=== PATIENT | male | born 1940 | race Caucasian/White ===

== ENCOUNTER 2016-09-26 09:14 | Emergency (ER) | payer MEDICARE ==
--- NOTE | 2016-09-26 10:08 | RAD ---
INDICATION: Left foot pain, bone spur. TECHNIQUE: 3 views of the left foot were obtained. FINDINGS: The bones are in normal alignment. No fracture is seen. Note is made of prominent vascular calcifications. 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 There is a large spur arising from the inferior aspect of the calcaneus and a small spur arising from the posterior aspect of the calcaneus. IMPRESSION: CALCANEAL SPURS.
--- NOTE | 2016-09-26 10:11 | ED ---
Lower Extremity - HPI Summary HPI Summary: 76 male presents with complaints of a left heel bone spur that has been ongoing for years and has been worsening over the past week. Patient states he usually comes here for injections and the pain goes away for a couple of months. Patient is able to bear weight and walk. States he never had to come into the ED first, to get the injection. Patient sees Dr Davis states he was seen in [place] and had an order to get injections the last couple of times. Bypassed that step this time and just come straight here. Patient denies any other pain, injuries, numbness/tingling and loss of ROM. No other complaints. PMHx significant for diabetes. No pain medications. Has not done anything for the pain. - History of Current Complaint Chief Complaint: EDExtremityLower Stated Complaint: LT FOOT PAIN Time Seen by Provider: 09/26/16 09:43 Hx Obtained From: Patient Mechanism Of Injury: Unknown Onset of Pain: Days - years Onset/Duration: Days - years however worsened over the past couple of days Severity Initially: Mild Severity Currently: Moderate Pain Intensity: 5 Pain Scale Used: 0-10 Numeric Timing: Constant Location: Is Discrete @ - left heel/foot Character Of Pain: Aching Associated Signs And Symptoms: Negative: Swelling, Redness, Bruising, Fever Aggravating Factor(s): Standing, Ambulation, Weight Bearing Alleviating Factor(s): Rest Able to Bear Weight: Yes - Allergies/Home Medications Allergies/Adverse Reactions: Allergies Allergy/AdvReac Type Severity Reaction Status Date / Time Quinolones Allergy Tingling Verified 07/01/16 10:45 PMH/Surg Hx/FS Hx/Imm Hx Endocrine/Hematology History: Reports: Hx Diabetes Cardiovascular History: Denies: Hx Hypertension, Hx Pacemaker/ICD History: Denies: Hx Renal Disease Sensory History: Denies: Hx Hearing Aid Psychiatric History: Denies: Hx Panic Disorder - Cancer History Cancer Type, Location and Year: 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 LT SHOULDER = RCT. 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 KVNG KNEE - ARTHROSCOPIC && CARTILAGE REPAIR - Immunization History Immunizations Up to Date: Yes Infectious Disease History: No Infectious Disease History: Denies: Traveled Outside the [place] in Last 30 Days - Family History Known Family History: Positive: None - Social History Alcohol Use: Rare Substance Use Type: Reports: None Smoking Status (MU): Former Smoker Review of Systems Constitutional: Negative Cardiovascular: Negative Respiratory: Negative Positive: Arthralgia, Myalgia - left heel/foot Skin: Negative Neurological: Negative All Other Systems Reviewed And Are Negative: Yes Physical Exam Triage Information Reviewed: Yes Vital Signs On Initial Exam: Initial Vitals Temp Pulse Resp BP Pulse Ox 97.6 F 54 16 126/63 97 09/26/16 09:17 09/26/16 09:17 09/26/16 09:17 09/26/16 09:17 09/26/16 09:17 Vital Signs Reviewed: Yes Appearance: Positive: Well-Appearing, No Pain Distress, Well-Nourished Skin: Positive: Warm, Skin Color Reflects Adequate Perfusion, Dry. Negative: Numb, Erythema @ Head/Face: Positive: Normal Head/Face Inspection Eyes: Positive: Conjunctiva Clear ENT: Positive: Hearing grossly normal Neck: Positive: Supple, Nontender Respiratory/Lung Sounds: Positive: Clear to Auscultation, Breath Sounds Present. Negative: Rales, Rhonchi, Wheezes Cardiovascular: Positive: Normal, RRR, Pulses are Symmetrical in both Upper and Lower Extremities - 2+ pedal b/l. Negative: Murmur, Rub Bowel Sounds: Positive: Present Musculoskeletal: Positive: Normal, Strength/ROM Intact, Pain @ - left heel on palpation, Other - bone spur of left heel palpated Neurological: Positive: Normal, Sensory/Motor Intact - sensation intact, Alert, Oriented to Person Place, Time, CN Intact II-III, Reflexes Intact, NV Bundle Intact Distally, Normal Gait - with pain and favoring right side due to pain of left heel Diagnostics - Vital Signs Vital Signs Temp Pulse Resp BP Pulse Ox 09/26/16 09:24 97.3 F 54 16 126/63 98 09/26/16 09:17 97.6 F 54 16 126/63 97 - Laboratory Lab Statement: Any lab studies that have been ordered have been reviewed, and results considered in the medical decision making process. 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 There is a large spur arising from the inferior aspect of the calcaneus and a small spur arising from the posterior aspect of the calcaneus. Radiology Interpretation Completed By: Radiologist Lower Extremity Course/Dx - Course Course Of Treatment: patient was properly educated on needing an order by Dr Davis or orthopedist to have radiology inject heel spur for relief. Did not want any medication pain management at this time. Spoke with Dr Lynn to try and see if he was able to get an order in for him today however he was in surgery. Patient instructed to call orthopedic office and speak with them about getting an order for injection with radiology. Also educated to use heel cushions for support and rest. Follow up with ortho. Aware of worsening signs and symptoms. - Diagnoses Differential Diagnosis/HQI/PQRI: Positive: Contusion, Fracture (Closed), Sprain , Strain, Other - heel spur Provider Diagnoses: Heel spur Discharge - Discharge Plan Condition: Stable Disposition: HOME Patient Education Materials: Heel Spur (ED) Additional Instructions: Call orthopedic doctor to get an order for injection. Try obtaining a heel cushion at [facility] as we discussed to place in shoe.
[2016-09-26 11:05] VITALS: BP 119/60
== END 2016-09-26 11:00 | disposition home or self-care (01) ==
LOC: ED 09:14
DX: M77.30 Calcaneal spur, unspecified foot (principal); M79.1 Myalgia; Z87.891 Personal history of nicotine dependence
CPT/HCPCS: 99282

== ENCOUNTER 2016-12-11 07:43 | Day surgery (SDC) | payer MEDICARE ==
[2016-12-11] MEDS ORDERED: ceFAZolin 2 GM PREMIX (*) 50 ML IVPB ONE (08:09)
[2016-12-11] MEDS ORDERED: Dexamethasone IV* 4 MG/ML 1 ML (4 MG) ONE (09:41)
[2016-12-11] MEDS ORDERED: Lidocaine 1% INJ* 10 MG/ML 30 ML SDV ONE (09:41)
[2016-12-11] MEDS ORDERED: Bupivacaine 0.5% SDV PF* 30 ML VIAL ONE (09:42)
[2016-12-11] MEDS ORDERED: Insulin LISPRO* 1 UNITS UNIT SUBCUT ONE ×2 (10:05→10:10)
[2016-12-11] MEDS ORDERED: Midazolam* 1 MG/ML 2 ML VIAL (2 MG) ONE (10:19)
[2016-12-11] MEDS ORDERED: fentaNYL* 50 MCG/ML 2 ML VIAL (100 MCG VIAL) ONE (10:19)
[2016-12-11 11:42] VITALS: BP 113/64
--- NOTE | 2016-12-11 21:31 | OP ---
DATE OF OPERATION: 12/11/16 [facility] DATE OF : 42 SURGEON: Diego Díaz DPM PRODUCTION SUPV: None. ANESTHESIOLOGIST: Handy Jasmine MD ANESTHESIA: MAC with local. 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 OPERATIVE PROCEDURE: Excision of dorsal tarsal bone spurs from the talonavicular joint on the left foot. PATHOLOGY: Degenerative bone. HEMOSTASIS: Pneumatic ankle tourniquet. ESTIMATED BLOOD LOSS: Less than 10 cc. INDICATIONS: The patient with chronic and progressive left dorsal pain causing him to limp and limiting his ability to walk for exercise. He has had previous injections, tried supportive shoes and anti-inflammatories and continues to have limiting pain. He opts for surgery at this time to attempt to decrease his pain and improve his function and his ability to walk. DESCRIPTION OF PROCEDURE: The patient was brought to the operating room, placed on the operating table in supine position. The anesthesia department administered IV sedation and peripheral nerve block was performed about the left foot with a 1:1 mixture of 1% lidocaine plain and 0.5% Marcaine plain. The left foot was then prepped and draped in the usual fashion. The left foot was exsanguinated with an Esmarch bandage and pneumatic ankle tourniquet was inflated to 250 mmHg above a well-padded left ankle. Attention was directed to the dorsal medial aspect of the left foot where a linear incision was made over the talonavicular joint. The incision was deepened through subcutaneous tissue with care being taken to retract neurovascular structures and cauterize the superficial bleeders as needed. At the level of the deep fascia, a linear incision was made through the capsule and periosteum to allow for exposure of the joint. Subperiosteal dissection was carried dorsally and laterally to allow for exposure of the joint. With this being done, there was noted to be a large osteophyte proliferation primarily on the talus and to a lesser degree at the proximal aspect of the dorsal navicula. Using a sagittal saw as well as rongeur, the osteophytes were resected. As far as the dorsal lateral aspect of the joint, as much of that could be accessed was also resected. Hand rasp and power juan j was used to smooth remaining rough edges. The surgical site was flushed with copious amounts of normal sterile saline. Next, the capsule and periosteal tissues were reapproximated and secured with 2-0 Vicryl. Layer closure was performed with 4-0 Vicryl and skin was closed with 5-0 nylon. 4 mg of dexamethasone phosphate was infiltrated into the joint. The surgical site was dressed with Xeroform gauze, Troy, and light Coban wrap. Pneumatic ankle tourniquet was deflated about the left ankle and a prompt hyperemic response was noted in all 5 digits of the patient's left foot. Having appeared to have tolerated the procedures and anesthesia well, the patient was transported via cart from the operating room to Recovery in satisfactory condition. Capillary refill less than 3 seconds to all digits of the left foot. [id number]/CPS #: [id number] MTDD
== END 2016-12-11 12:01 | disposition home or self-care (01) ==
LOC: OREAST 07:43
PROVIDERS: ATTEND Podiatrist Foot Surgery
DX: M77.52 Other enthesopathy of left foot and ankle (principal); M19.072 Primary osteoarthritis, left ankle and foot; I10 Essential (primary) hypertension; E11.9 Type 2 diabetes mellitus without complications; Z79.4 Long term (current) use of insulin; I35.0 Nonrheumatic aortic (valve) stenosis; K21.9 Gastro-esophageal reflux disease without esophagitis; I48.0 Paroxysmal atrial fibrillation
CPT/HCPCS: J0690; J1100; J2001; J2250; J3010

== ENCOUNTER 2017-03-03 12:37 | Emergency (ER) | payer MEDICARE ==
[2017-03-03 13:49] VITALS: BP 129/75
--- NOTE | 2017-03-03 14:15 | UC ---
Head Injury HPI - HPI Summary HPI Summary: head injury x 2 hrs ago s/p fell on ice hit right side of his head + bleeding , no loc , no n/v , no headaches - History Of Current Complaint Chief Complaint: UCHeadInjury Stated Complaint: HEAD INJURY/LAC Time Seen by Provider: 03/03/17 13:43 Hx Obtained From: Patient Onset/Duration: Sudden Onset, Lasting Hours - 2, Still Present Severity Currently: Moderate Severity Initially: Moderate Character: Dull Aggravating Factor(s): Nothing Alleviating Factor(s): Nothing Associated Signs And Symptoms: Negative: LOC (Time In Secs./Mins/Hrs), LOC Duration Unknown, Confusion, Memory Loss, Seizure, Epistaxis, Dental Malocclusion, Neck Pain, Nausea, Vomiting - Allergies/Home Medications Allergies/Adverse Reactions: Allergies Allergy/AdvReac Type Severity Reaction Status Date / Time Ciprofloxacin Allergy Severe blisters Verified 03/03/17 13:39 mouth and throat Quinolones Allergy Tingling Verified 03/03/17 13:39 PMH/Surg Hx/FS Hx/Imm Hx Endocrine History: Diabetes Cardiovascular History: Cardiac Disease, Hypertension Cancer History: Other - skin cancer melanoma Other Cancer History: melanoma - Surgical History Surgical History: Yes Surgery Procedure, Year, and Place: CARDIAC CATH - NO STENTS. LT SHOULDER = RCT. 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 2 hernia repairs. bilat legs- varicose vein stripping. KVNG KNEE - ARTHROSCOPIC && CARTILAGE REPAIR - Family History Known Family History: Positive: Hypertension - Social History Alcohol Use: None Substance Use Type: None Smoking Status (MU): Former Smoker Amount Used/How Often: smoked for 10 years 1/2-1ppd When Did the Patient Quit Smoking/Using Tobacco: 1967 - Immunization History Most Recent Influenza Vaccination: not yet 2017 Review of Systems Constitutional: Negative Eyes: Negative ENT: Negative Respiratory: Negative Cardiovascular: Negative Is Patient Immunocompromised?: No All Other Systems Reviewed And Are Negative: Yes Physical Exam Triage Information Reviewed: Yes Appearance: No Pain Distress, Well-Nourished Vital Signs: Initial Vital Signs Temp 98 F 03/03/17 13:41 Pulse 66 03/03/17 13:41 Resp 20 03/03/17 13:41 BP 129/75 03/03/17 13:41 Pulse Ox 96 03/03/17 13:41 Vital Signs Reviewed: Yes Eyes: Positive: Conjunctiva Clear ENT: Positive: Normal ENT inspection, Hearing grossly normal, Pharynx normal Neck exam: Normal Neck: Positive: Supple, Nontender, No Lymphadenopathy Respiratory: Positive: Chest non-tender, Lungs clear, Normal breath sounds, No respiratory distress, No accessory muscle use Cardiovascular: Positive: RRR, Pulses Normal, Murmur:Sys:Grade _?_/ - 3 Abdomen Description: Positive: Nontender, No Organomegaly, Soft Bowel Sounds: Positive: Present Musculoskeletal: Positive: Strength Intact, ROM Intact, No Edema Neurological: Positive: Alert Skin Exam: Normal Skin: Positive: Other - minor abrasion right side of scalp Head Injury Course/Dx - Differential Dx/Diagnosis Provider Diagnoses: councussion. head injury. abrasio scalp Discharge - Discharge Plan Condition: Stable Disposition: HOME Patient Education Materials: Concussion (ED), Head Injury (ED) Referrals: LETITIA Hernandez [Primary Care Provider] - 2 Days
--- NOTE | 2017-03-03 14:19 | RAD ---
HISTORY: Head injury COMPARISONS: None TECHNIQUE: Multiple contiguous axial CT scans were obtained of the head without intravenous contrast. FINDINGS: HEMORRHAGE/INFARCT: There is no hemorrhage or acute infarct. MASSES/SHIFT: There is no mass or shift. EXTRA-AXIAL SPACES: There are no extra-axial fluid collections. SULCI AND VENTRICLES: There is mild diffuse and proportional enlargement of the sulci and ventricles. CEREBRUM: There is mild hypoattenuation of the periventricular and subcortical white matter. BRAINSTEM: There are no focal parenchymal abnormalities. CEREBELLUM: There are no focal parenchymal abnormalities. VESSELS: There is calcification of the cavernous segments of the internal carotid arteries bilaterally and of the distal vertebral arteries bilaterally. PARANASAL SINUSES: The paranasal sinuses are clear. ORBITS: The orbits are unremarkable. BONES AND SOFT TISSUE: No bone or soft tissue abnormalities are noted. OTHER: None IMPRESSION: NO ACUTE INTRACRANIAL PATHOLOGY. MILD DIFFUSE INVOLUTIONAL CHANGE WITH MILD CHRONIC SMALL VESSEL ISCHEMIC CHANGES.
== END 2017-03-03 14:27 | disposition home or self-care (01) ==
LOC: UCCORT 12:37
DX: S06.0X0A Concussion without loss of consciousness, initial encounter (principal); S00.01XA Abrasion of scalp, initial encounter; W00.0XXA Fall on same level due to ice and snow, initial encounter; Y93.9 Activity, unspecified; Y92.9 Unspecified place or not applicable; E11.9 Type 2 diabetes mellitus without complications; I10 Essential (primary) hypertension; I51.9 Heart disease, unspecified; Z85.820 Personal history of malignant melanoma of skin; Z88.1 Allergy status to other antibiotic agents; Z87.891 Personal history of nicotine dependence
CPT/HCPCS: 70450; 99212; G0463

== ENCOUNTER 2017-10-25 16:31 | Emergency (ER) | payer MEDICARE ==
[2017-10-25 16:58] VITALS: BP 133/63
--- NOTE | 2017-10-25 18:23 | UC ---
UC General HPI - HPI Summary HPI Summary: Patient states that for the past 2-3 days he has had constipation. Denies abdominal pain nausea or vomiting. States that this morning he took some MiraLAX and he had 2 bowel movements while at the urgent care. No other complaints. - History of Current Complaint Chief Complaint: UCGI Stated Complaint: CONSTIPATION Time Seen by Provider: 10/25/17 17:53 Hx Obtained From: Patient Onset/Duration: Sudden Onset, Lasting Days Onset Severity: Severe Current Severity: None Pain Intensity: 8 Associated Signs & Symptoms: Positive: Abdominal Pain - Allergy/Home Medications Allergies/Adverse Reactions: Allergies Allergy/AdvReac Type Severity Reaction Status Date / Time MS Ciprofloxacin Allergy Severe blisters Verified 10/25/17 16:59 [Ciprofloxacin] mouth and throat MS Quinolones [Quinolones] Allergy Tingling Verified 10/25/17 16:59 Home Medications: Home Medications Canagliflozin (NF) [Invokana (NF)] 100 mg PO DAILY 10/25/17 [History Confirmed 10/25/17] Multivit-Minerals/Herbal 121 [Urinozinc Prostate Formula Cap] 1 each PO DAILY [History Confirmed 10/25/17] PMH/Surg Hx/FS Hx/Imm Hx Endocrine History: Diabetes, Dyslipidemia Cardiovascular History: Cardiac Disease, Hypertension - Surgical History Surgical History: Yes Surgery Procedure, Year, and Place: CARDIAC CATH - NO STENTS. LT SHOULDER = RCT. 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 2 hernia repairs. bilat legs- varicose vein stripping. KVNG KNEE - ARTHROSCOPIC && CARTILAGE REPAIR - Family History Known Family History: Positive: Hypertension - Social History Alcohol Use: None Substance Use Type: None Smoking Status (MU): Former Smoker Amount Used/How Often: smoked for 10 years 1/2-1ppd When Did the Patient Quit Smoking/Using Tobacco: 1967 - Immunization History Most Recent Influenza Vaccination: not yet 2017 Review of Systems Gastrointestinal: Abdominal Pain, Other All Other Systems Reviewed And Are Negative: Yes Physical Exam Triage Information Reviewed: Yes Appearance: Well-Appearing, No Pain Distress, Well-Nourished Vital Signs: Initial Vital Signs Temp 97.1 F 10/25/17 16:51 Pulse 88 10/25/17 16:51 Resp 17 10/25/17 16:51 BP 133/63 10/25/17 16:51 Pulse Ox 95 10/25/17 16:51 Vital Signs Reviewed: Yes Eyes: Positive: Conjunctiva Clear ENT: Positive: Pharynx normal Neck: Positive: Supple, Nontender, No Lymphadenopathy Respiratory: Positive: Chest non-tender, Lungs clear, Normal breath sounds, No respiratory distress Cardiovascular: Positive: RRR, Pulses Normal, Brisk Capillary Refill, Murmur:Sys :Grade _?_/ - 5/6 Abdomen Description: Positive: Nontender, No Organomegaly, Soft Bowel Sounds: Positive: Present Course/Dx - Course Course Of Treatment: Patient's constipation found resolution at when he had several BMs. Denies diarrhea. Denies abdominal pain. F/u PCP . Miralax as needed. - Differential Dx - Multi-Symptom Provider Diagnoses: constipation Discharge - Sign-Out/Discharge Documenting (check all that apply): Patient Departure All imaging exams completed and their final reports reviewed: No Studies - Discharge Plan Condition: Stable Disposition: HOME Patient Education Materials: Constipation (ED), Polyethylene Glycol 3350 (By mouth) Referrals: Gonsalo Child MD [Primary Care Provider] - - Billing Disposition and Condition Condition: STABLE Disposition: Home
== END 2017-10-25 18:22 | disposition home or self-care (01) ==
LOC: UCCORT 16:31
DX: K59.00 Constipation, unspecified (principal); Z87.891 Personal history of nicotine dependence; Z88.3 Allergy status to other anti-infective agents
CPT/HCPCS: 99212; G0463

== ENCOUNTER 2017-11-10 10:49 | Emergency (ER) | payer MEDICARE ==
--- OUTSIDE RECORDS SUMMARY | 2017-11-10 10:59 | XMS REPORT ---
:1940 External Reference #:[id number] Author Organization [facility] Address [address] [place] [address] Phone [phone] Care Team Providers Name Role Phone HCP given Primary Care Physician Unavailable Payers Type Date Identification Numbers Payment Provider Subscriber Commercial Expires: Policy Number: [id number] [facility] Nilam Awan 2015 00 MDCR Gifty. Group Number: [id number] [address] [address] PayID: [id number] [place] [address] Commercial Effective: Policy Number: Today Option/Amsandra Nilam Awan 2015 [id number] Prog PayID: [id number] [address] [address] [place] [address] Advance Directives Description No Advance Directives Problems Date Description Provider Status Onset: 07/22/2010 Type II diabetes mellitus uncontrolled Gonsalo Child M.D. Active Onset: 07/22/2010 Benign essential hypertension Gonsalo Child M.D. Active Onset: 07/22/2010 Pure hypercholesterolemia Gonsalo Child M.D. Active Onset: 06/04/2011 Rheumatic mitral stenosis Gonsalo Child M.D. Active Onset: 05/06/2013 Type 2 diabetes mellitus Gonsalo Child M.D. Active Onset: 01/23/2014 Aortic valve disorder Gonsalo Child M.D. Active Onset: 01/23/2014 Mitral valve disorder Gonsalo Child M.D. Active Onset: 12/20/2014 Essential hypertension Gonsalo Child M.D. Active Onset: 04/06/2017 History of polyp of colon Gonsalo Child M.D. 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 Cigarette Use 01/23/2014 Former Cigarette Smoker smoked for 10yrs, quit 1967 ETOH Use Denies alcohol use Exercise Type/Frequency Exercises walks 4 miles 5x/wk Age 1st [place] 17 Years Old Allergies, Adverse Reactions, Alerts Date Description Reaction Status Severity Comments 08/20/2009 Ciprofloxacin active tongue sores, ulcers Medications Medication Date Status Form Strength Qnty SIG Indications Ordering Provider Ashlie 10/28/ Active Solution 100Unit/ML inject 50 E11.9 Silcoff, Kwikpen 2018 Pen-Inject units once a Gonsalo, day, at same M.D. time every day, for blood sugar control Sildenafil 08/14/ Active Tablets 20mg 50tab 3-5 tablets N52.9 Silcoff, Citrate 2018 s up to Gonsalo, once/day as M.D. needed for erectile dysfunction Vitamin B12 07/14/ Active Tablets 2500mcg 2 by mouth D51.9 Unknown 2018 every day Chromium 07/14/ Active Tablets 1000mcg 1 tab po Unknown 2018 daily Esomeprazole 07/06/ Active Capsules 40mg 30cap take one R13.10 Silcoff, Magnesium 2018 DR s capsule by brianda Brush every M.D. morning, at least 30 minutes before eating Metformin HCL 07/05/ Active Tablets 1000mg 180ta take one E11.65 Silcoperla 2018 bs tablet by brianda Brush twice M.D. a day E11.9 Pen Hector 06/12/2017 Active Misc 31G 100units use as directed E11.9 Mateusz 07/15" X 8 for insulin laura Brush administration M.D. Shingrix 05/08/2017 Active Suspension 50mc 2units administer 2 Z23 Silcoff, Rec g doses as Gonsalo, directed, per M.D. cdc guidelines Diphenhydramin 04/05/2017 Active Tablets 50mg prn Unknown e HCL (Sleep) Propafenone 04/05/2017 Active Tablets 150m 1 tablet I49.9 Davidenko HCL g 3x/day; for , oskar Ch MD suppression Amlodipine 04/05/2017 Active Tablets 5mg 90tabs take 1 tablet I10 Silcoff, Besylate daily in the Prole, evening for M.D. high blood pressure Cinnamon 05/05/2013 Active Capsules 1000 OTC Unknown mg Magnesium 05/05/2013 Active Tablets 250m OTC 1 po qd/occ. Unknown g Aspirin Ec 07/22/[address] 81mg 1 pill daily 250.02 Silcoff, for heart Gonsalo, disease M.D. prevention Metoprolol 12/26/2009 Active Tablets 25mg 90tabs take one tablet I10 Silcoff, Tartrate by mouth every Prole, day for high M.D. blood pressure Simvastatin Active Tablets 20mg 90tabs take one tablet Silcoff, by mouth every Prole, day to lower M.D. cholesterol [facility]x Solution 100U 15ml inject 40 units E11.9 Silcoff , Kwikpen - Pen-Inject nit/ once a day, at [place], 10/28/2017 ML same time every M.D. day, for blood sugar control [facility] 09/29/2017 Hx Solution 100U inject 30 units E11.9 Silcoff, Kwikpen - Pen-Inject nit/ once a day, at [place], 10/16/2017 ML same time every M.D. day, for blood sugar control [facility] Hx Solution 100U 15ml inject 20 units E11.9 Silcoff , Kwikpen - Pen-Inject nit/ once a day, at [place], 09/29/2017 ML same time every M.D. day, for blood sugar control Basaglar 07/05/2017 Hx Solution 100U 15ml inject 10 units E11.9 Silcoff , Kwikpen - Pen-Inject nit/ once a day, at Prole, 09/16/2017 ML same time every M.D. day, for blood sugar control Basaglar 06/12/2017 Hx Solution 100U 15ml inject 20 units E11.9 Silcoff , Kwikpen - Pen-Inject nit/ once a day, at [place]le, 07/05/2017 ML same time every M.D. day, for blood sugar control Shilatjit 04/05/2017 Hx 50mg (supplement) Unknown - 07/14/2017 Tribulus 04/05/2017 Hx 50mg 1 daily Unknown (Fruit) - (supplement) 07/14/2017 Invokana 04/05/2017 Hx Tablets 300m 1 tab by mouth E11.9 Unknown - g every morning 06/12/2017 for diabetes Vitamin B12 04/05/2017 Hx Tablets ER 1000 2 tablets by D51.9 Unknown - mcg mouth every 07/14/2017 day; for B12 deficiency Voltaren 12/20/2014 Hx Gel 1% 300gm apply 1 gram M25.57 Silcoff, - 4x/day to 2 Gonsalo, 07/05/2017 painful area on M.D. the top of left foot M19.072 Pioglitazone HCL 12/20/2014 - Hx Tablets 45mg 90tabs Take One E11.65 Silcoff, 09/16/2017 Tablet By Sherly Brush Mouth Every Day For Blood Sugar Control E11.9 Meloxicam 07/11/2014 - 12/19/2014 Hx Tablets 15mg 1 by mouth every 719.47 Unknown day for foot pain 715.17 Chromium 05/05/2013 - Hx Tablets 200mcg OTC occ. Unknown Picolinate 07/14/2017 Hydrocodone/Alfredo 03/18/2011 - Hx Tablets 5-325mg 30tabs 1 by mouth 724.5 Silcoff, taminophen 04/18/2011 every 4 hours Gonsalo, as needed for M.D. pain Actos 11/13/2010 - Hx Tablets 30mg 90tabs Take One E11.6 Silcoff, 12/20/2014 Tablet By 5 Gonsalo, Mouth Every M.D. Day For Diabetes E11.9 Actos 07/22/2010 - Hx Tablets 15mg 90tabs take one 250.02 Silcoff, 11/13/2010 tablet by Sherly Brush mouth every day for diabetes Metformin HCL 01/22/2010 - Hx Tablets 500mg 360tabs Take Two E11.65 Silcoff, 07/05/2017 Tablets By Sherly Brush Mouth Twice A Day For Diabetes E11.9 Metformin HCL 10/22/2009 - Hx Tablets 500mg 360tabs 1 bid to 250.02 Silcoff, 01/22/2010 start; after 1 Gonsalo week increase M.D. to 2 in am and 1 in pm if morning sugar is >120; after 1 more week inc to 2 bid Simvastatin 10/22/2009 - Hx Tablets 40mg 90tabs take one E78.0 Silcoff, 04/05/2017 tablet by brianda Brush every M.D. day for high cholesterol Viagra 08/20/2009 - Hx Tablets 100mg 30tabs 1/2-1 po qd 607.84 Silcoperla, 08/14/2017 prn for patrizia Brush M.D. dysfunction; max 1 dose/day Metoprolol 08/19/2009 - Hx 25mg 1 po qd 401.1 Yalamanchil Tartrate 12/26/2009 Iglesia grant MD Propafenone 08/19/2009 - Hx 150mg 1 po qd 427.9 Davidenko, HCL 04/05/2017 MD Dima Simvastatin 08/19/2009 - Hx 20mg 1 po qam for 272.0 Yalamanchil 10/22/2009 high Iglesia grant cholesterol Viagra 08/19/2009 - Hx Tablets 50mg 1 po qd prn as 607.84 Unknown 08/20/2009 directed Glimepiride 08/19/2009 - Hx Tablets 4mg 180tabs take one E11.9 Silcoff, 06/12/2017 tablet by brianda Brush twice a M.D. day for diabetes Tamsulosin HCL - Hx Capsules 0.4mg 30caps 1 tablet daily Unknown 07/14/2017 in the morning and again after supper Immunizations CPT Code Status Date Vaccine Lot # [id number] Given 07/18/2017 Shingrix Zoster (Shingles) Vaccine (HZV) Recomb,Subnit,Adjuvanted 14397 Given 05/11/2017 Shingrix Zoster (Shingles) Vaccine (HZV) Recomb,Subnit,Adjuvanted 34103 Given 04/06/2017 Influenza Virus Vaccine, Quadrivalent, Split, [id number] Preservative Free 24683 Given 01/04/2015 Influenza Vaccine Split Virus Preservative Free Im [id number] Use 38565 Given 12/20/2014 Prevnar 13 [id number] 02005 Given 01/23/2014 Influenza Vaccine Split Virus Preservative Free Im [id number] Use 36477 Given 02/22/2013 Pneumococcal Immunization 48259 Given 02/22/2013 Flu, Split Virus 3Yrs 84884 Given 11/05/2011 Flu, Split Virus 3Yrs [id number] 65661 Given 11/13/2010 Flu, Split Virus 3Yrs [id number] 62568 Given 01/22/2010 Pneumococcal Immunization [id number] 25220 Given 01/22/2010 Adacel or Boostrix, TDaP [id number] 18763 Given 01/22/2010 Flu, Split Virus 3Yrs [id number] 70325 Given 04/10/2004 Pneumococcal Immunization 18384 Refused 04/24/2010 Zostavax Vital Signs Date Vital Result Comment 11/04/2017 BP Systolic 120 mmHg BP Diastolic 70 mmHg Weight 179.00 lb with sneakers 10/16/2017 BP Systolic 114 mmHg BP Diastolic 66 mmHg Heart Rate 88 /min reg Respiratory Rate 32 /min not laboured; shallow Weight 188.00 lb w/sneakers 09/16/2017 BP Systolic 110 mmHg BP Diastolic 64 mmHg Weight 187.00 lb w/shoes 07/15/2017 BP Systolic 110 mmHg BP Diastolic 70 mmHg Height 71 inches 5'11" with shoes Weight 200.00 lb with shoes BMI (Body Mass Index) 27.9 kg/m2 07/06/2017 BP Systolic 128 mmHg BP Diastolic 68 mmHg Weight 200.00 lb 06/12/2017 BP Systolic 100 mmHg BP Diastolic 60 mmHg Weight 197.00 lb w/shoes 05/08/2017 BP Systolic 112 mmHg BP Diastolic 64 mmHg Weight 197.00 lb 04/06/2017 BP Systolic 100 mmHg BP Diastolic 60 mmHg Weight 195.00 lb 03/27/2015 BP Systolic 118 mmHg BP Diastolic 78 mmHg Height 71.5 inches 5'11.50" Weight 206.50 lb BMI (Body Mass Index) 28.4 kg/m2 12/20/2014 BP Systolic 120 mmHg BP Diastolic 70 mmHg Weight 204.00 lb 07/18/2014 BP Systolic 130 mmHg BP Diastolic 78 mmHg Height 70.5 inches 5'10.50" Weight 202.00 lb BMI (Body Mass Index) 28.6 kg/m2 06/21/2014 BP Systolic 132 mmHg BP Diastolic 78 mmHg Weight 202.00 lb w/shoes 01/23/2014 BP Systolic 122 mmHg BP Diastolic 80 mmHg Height 71 inches 5'11" Weight 205.00 lb BMI (Body Mass Index) 28.6 kg/m2 11/24/2013 BP Systolic 100 mmHg BP Diastolic 64 mmHg Weight 202.00 lb 05/06/2013 BP Systolic 120 mmHg BP Diastolic 72 mmHg Heart Rate 74 /min reg Respiratory Rate 16 /min not laboured Height 70.75 inches 5'10.75" Weight 200.00 lb BMI (Body Mass Index) 28.1 kg/m2 11/05/2012 BP Systolic 140 mmHg BP Diastolic 70 mmHg Heart Rate 56 /min reg Height 70.75 inches 5'10.75" Weight 199.00 lb BMI (Body Mass Index) 27.9 kg/m2 05/04/2012 BP Systolic 118 mmHg BP Diastolic 76 mmHg Heart Rate 76 /min reg Height 71 inches 5'11" Weight 198.00 lb BMI (Body Mass Index) 27.6 kg/m2 03/16/2012 Body Temperature 98.2 F 03/12/2012 BP Systolic 118 mmHg BP Diastolic 66 mmHg Weight 203.00 lb 11/05/2011 BP Systolic 108 mmHg BP Diastolic 76 mmHg BP Systolic Recheck 120 mmHg R arm sitting BP Diastolic Recheck 70 mmHg R arm sitting Heart Rate 56 /min reg Height 71 inches 5'11" Weight 197.00 lb BMI (Body Mass Index) 27.5 kg/m2 Last Menstrual Period 0 06/04/2011 BP Systolic 106 mmHg BP Diastolic 70 mmHg BP Systolic Recheck 114 mmHg R arm sitting BP Diastolic Recheck 66 mmHg R arm sitting Weight 199.00 lb 03/19/2011 BP Systolic 130 mmHg BP Diastolic 80 mmHg 03/04/2011 BP Systolic 130 mmHg BP Diastolic 80 mmHg Height 71.50 inches 5'11.50" Weight 203.00 lb BMI (Body Mass Index) 27.9 kg/m2 11/13/2010 BP Systolic 108 mmHg BP Diastolic 66 mmHg Heart Rate 59 /min reg Weight 195.00 lb 07/22/2010 BP Systolic 128 mmHg BP Diastolic 78 mmHg Weight 195.00 lb 04/24/2010 BP Systolic 114 mmHg BP Diastolic 70 mmHg Height 72 inches 6'0" Weight 197.00 lb BMI (Body Mass Index) 26.7 kg/m2 01/22/2010 BP Systolic 110 mmHg BP Diastolic 72 mmHg Weight 195.00 lb 10/22/2009 BP Systolic 118 mmHg BP Diastolic 76 mmHg Weight 193.00 lb Last Menstrual Period 0 08/20/2009 BP Systolic 112 mmHg BP Diastolic 70 mmHg Heart Rate 56 /min reg Respiratory Rate 12 /min not laboured Height 71.75 inches 5'11.75" Weight 191.00 lb BMI (Body Mass Index) 26.1 kg/m2 Results Test Date Test Result H/L Range Note Laboratory test finding 09/16/2017 Hemoglobin A1c 14.4 Glucose [facility] Laboratory test finding 07/16/2017 Hemoglobin A1c 8.5 Urine Micro Inhouse 06/12/2017 Ua WBC - 1 Ua RBC - 1 Ua Casts - 1 Ua Epi - 1 Ua Other - 1 Ua Glucose +, 2000 1 Ua Bilirubin - 1 Ua Ketones - 1 Ua Specific [place] 1.015 1 Ua Blood - 1 Ua PH 5.0 1 Ua Protein - 1 Ua Urobilinogen - 1 Ua Nitrite - 1 Ua Leukocytes - 1 Laboratory test finding 06/12/2017 Hemoglobin A1c 8.4 Laboratory test finding 04/06/2017 Hemoglobin A1c 8.9 Laboratory test finding 03/27/2015 Hemoglobin A1c 7.1 Urine Micro Inhouse 12/20/2014 Ua WBC 1-2 Ua RBC TNTC Ua Casts 1-2 Ua Epi 1 Ua Glucose 1/2 Ua Bilirubin SM Ua Specific [place] 1.015 Ua PH 5.0 Ua Urobilinogen 0.2 Laboratory test finding 12/20/2014 Hemoglobin A1c 8.0 Urine Microalbumin Random 06/27/2014 Ur Microalbumin (mg/L) 8.0 mg/L Urine Creatinine 125.61 mg/dL Urine Microalbumin/Creatinine 6.3 mg/g Less Than 31 Lipid Profile (Trig/Chol/HDL) 06/27/2014 Triglycerides 145 mg/dL 2 Cholesterol 169 mg/dL 3 HDL Cholesterol 48.6 mg/dL 4 LDL Cholesterol 91 mg/dL 5 Laboratory test finding 06/21/2014 Hemoglobin A1c 7.1 Comprehensive Metabolic Panel 01/09/2014 Glucose 113 mg/dL High 74-106 BUN 17 mg/dL 7-18 Creatinine 1.1 mg/dL 0.6-1.3 Glom Filtration Rate, Estimate >60 mL/min >60 If >60 mL/min >60 6 BUN/Creat 15.4 ratio Sodium 140 mmol/L 136-145 Potassium 3.8 mmol/L 3.5-5.1 Chloride 105 mmol/L 98-107 Carbon Dioxide 26 mmol/L 21-32 Anion Gap 13 mEq/L 8-16 Calcium 9.2 mg/dL 8.5-10.1 Total Protein 6.9 g/dL 6.4-8.2 Albumin 3.8 g/dL 3.4-5.0 Globulin 3.1 g/dL 1.9-4.3 Alb/Glob 1.2 ratio Bilirubin,Total 0.6 mg/dL 0.2-1.0 Sgot/Ast 11 U/L Low 15-37 7 SGPT/Alt 23 U/L 12-78 Alkaline Phosphatase 54 U/L 45-117 CBC W/Automated Diff 01/09/2014 White Blood Count 7.5 K/uL 3.4-10.5 Red Blood Count 4.41 M/uL 4.20-5.80 Hemoglobin 13.8 gm/dL 12.8-17.0 Hematocrit 40.9 % 38.0-48.0 Mean Cell Volume 92.7 fl 80.0-96.0 Mean Corpuscular HGB 31.3 pg 27.0-33.0 Mean Corpuscular HGB Conc 33.7 g/dL 31.7-36.0 Platelet Count 218 K/uL 150-400 Red Cell Distri Width SD 43.2 fl 36-51 Red Cell Distri Width %CV 13.0 % 11.6-15.8 Mean Platelet Volume 10.0 fL 6.6-10.6 Neut% 49.2 % 33.0-73.0 Lymph % 34.7 % 17.0-56.0 [place] % 12.2 % High 0.0-10.0 Eo% 3.6 % 0.0-5.0 Bas% 0.3 % 0.1-1.0 Neut# 3.70 K/uL 1.8-7.0 Lymph # 2.61 K/uL 1.2-4.0 [place] # 0.92 K/uL High 0.0-0.6 Eos # 0.27 K/uL 0.0-0.5 Baso # 0.02 K/uL Low 0.1-0.2 Laboratory test finding 01/09/2014 CK 105 U/L 39-308 Troponin-I < 0.02 ng/mL 8 Protime 01/09/2014 Protime 13.0 seconds 12.0-14.4 Inr 1.0 0.9-1.1 9 Laboratory test finding 11/24/2013 Hemoglobin A1c 6.9% Urine Micro Inhouse 11/24/2013 Ua WBC - Ua RBC - Ua Casts - Ua Epi - Ua Other - Ua Glucose - Ua Bilirubin - Ua Ketones - Ua Specific [place] 1.030 Ua Blood - Ua PH 5.0 Ua Protein - Ua Urobilinogen - Ua Nitrite - Ua Leukocytes - Laboratory test 06/03/2013 Surgical Pathology RUN DATE: finding <SEE NOTE> Laboratory test 05/11/2013 Microalbumin,Random 7.5 mg/L 0.0-18.5 finding Urine LDL Cholesterol 05/11/2013 Cholesterol 186 mg/dL 120-200 Profile Triglycerides 193 mg/dL 16-231 HDL Cholesterol 51 mg/dL 29-83 LDL-Cholesterol 96 mg/dL 62-185 Laboratory test finding 05/11/2013 SGPT/Alt 30 U/L 30-65 Basic Metabolic Panel 05/11/2013 Glucose 129 mg/dL High 76-115 BUN 14 mg/dL 5-23 Creatinine 0.8 mg/dL 0.5-1.4 Glom Filtration Rate, Estimate >60 mL/min >60 If >60 mL/min >60 11 BUN/Creat 17.5 ratio Sodium 138 mmol/L 136-145 Potassium 4.1 mmol/L 3.5-5.1 Chloride 102 mmol/L 98-107 Carbon Dioxide 29 mEq/L 18-29 Anion Gap 11 mEq/L 8-16 Calcium 9.2 mg/dL 8.5-10.1 Laboratory test finding 05/06/2013 Hemoglobin A1c 6.7 Laboratory test finding 02/21/2013 Stool Occult Blood-Single NEGATIVE Negative 12 Spec Urine Micro Inhouse 11/05/2012 Ua WBC 0-2 Ua RBC 0-2 Ua Casts - Ua Epi - Ua Other - Ua Glucose - Ua Bilirubin - Ua Ketones - Ua Specific [place] 1.025 Ua Blood - Ua PH 5.0 Ua Protein - Ua Urobilinogen - Ua Nitrite - Ua Leukocytes - Laboratory test finding 11/05/2012 Hemoglobin A1c 6.7 Urine Microalbumin Random 05/13/2012 Ur Microalbumin (Mg/L) 3.0 mg/L 13 Urine Creatinine 97.2 mg/dL Urine Microalbumin/Creatinine 3.1 ug/mg Less Than 31 Basic Metabolic Panel 05/13/2012 Sodium 136 mmol/L 133-145 Potassium 4.2 mmol/L 3.5-5.0 Chloride 102 mmol/L 101-111 Co2 Carbon Dioxide 28.0 mmol/L 22-32 Anion Gap 6.0 mmol/L 2-11 Glucose 147 mg/dL High 70-100 Blood Urea Nitrogen 14 mg/dL 6-24 Creatinine 0.90 mg/dL 0.50-1.40 BUN/Creatinine Ratio 15.6 8-20 Calcium 9.2 mg/dL 8.1-9.9 Egfr Non- 83.2 >60 Egfr 107.0 >60 14 Laboratory test finding 05/13/2012 Alt 17 U/L 14-54 Lipid Profile (Trig/Chol/HDL) 05/13/2012 Triglycerides 90 mg/dL 40-200 Cholesterol 141 mg/dL Less than 200 HDL Cholesterol 42 mg/dL 40-60 15 Cholesterol/HDL Ratio 3.4 Average 1-4.44 LDL Cholesterol 81.0 mg/dL Less Than 100 16 Laboratory test finding 05/04/2012 Hemoglobin A1c 6.6 Laboratory test finding 03/12/2012 Surgical Pathology RUN DATE: 03/16/ <SEE 17 NOTE> Laboratory test finding 11/05/2011 Hemoglobin A1c 6.8% Laboratory test finding 06/04/2011 Hemoglobin A1c 6.8 Urine Microalbumin Random 05/27/2011 Microalbumin (MG/L) 7.0 mg/L Urine Creatinine 118.2 mg/dL Umesh Alb/Creatinine Ratio 5.9 UG/MG Less Than 30 18 BMP - Basic Metabolic Panel 05/27/2011 Sodium 135 mmol/L 135-145 Potassium 4.0 mmol/L 3.5-5.0 Chloride 102 mmol/L 101-111 Co2 (Carbon Dioxide) 28.0 mmol/L 22-32 Anion Gap 5.0 mmol/L 2-11 19 Glucose 153 mg/dL High 70-100 BUN 15 mg/dL 6-24 Creatinine 0.8 mg/dL 0.50-1.40 One Over Creatinine 1.25 BUN/Creatinine Ratio 18.8 8-20 Calcium 8.7 mg/dL 8.1-9.9 eGFR Non- 95.6 > 60 eGFR 122.9 > 60 20 Lipid Panel 05/27/2011 Triglyceride 106 mg/dL 40-200 Cholesterol 162 mg/dL Less Than 200 21 High Density Lipoprotein 47 mg/dL 40-60 22 Cholesterol/HDL Ratio 3.45 AVERAGE 1-4.97 Low Density Lipoprotein 94 mg/dL Less Than 100 23 Laboratory test finding 05/27/2011 Alt (SGPT) 19 U/L 17-63 Laboratory test finding 03/04/2011 Hemoglobin A1c 7.3 Laboratory test finding 11/13/2010 Hemoglobin A1c 7.4 Laboratory test finding 07/22/2010 Hemoglobin A1c 7.6 Laboratory test finding 04/24/2010 Hemoglobin A1c 8.2 Laboratory test finding 01/17/2010 Hemoglobin A1c 8.4 % High Less Than 6.0 24 Alt (SGPT) 26 U/L 17-63 Lipid Profile (Trig/Chol/HDL) 01/17/2010 Triglyceride 91 mg/dL 40-200 Cholesterol 169 mg/dL Less Than 200 25 High Density Lipoprotein 49 mg/dL 40-60 26 Cholesterol/HDL Ratio 3.45 AVERAGE 1-4.97 Low Density Lipoprotein 102 mg/dL High Less Than 100 27 Laboratory test 10/15/2009 Hemoglobin A1c 9.6 % High Less Than 6.0 28 finding Urine Microalbumin 10/15/2009 Microalbumin (MG/L) 10.0 mg/L Random Urine Creatinine 118.96 mg/dL Umesh Alb/Creatinine Ratio 8.4 UG/MG Less Than 30 29 CBC With Manual Diff 10/15/2009 White Blood Count 7.3 CUMM 4.8-10.8 Red Cell Count 4.89 CUMM 4.6-6.2 Hemoglobin 15.5 g/dL 14.0-18.0 Hematocrit 44 % 42-52 Mean Corpuscular Volume 90 um3 80-94 Mean Corpuscular Hemoglob 32 pg High 27-31 Mean Corpuscular HGB Cone 35 g/dL 32-36 Redcell Distribution WDTH 13 % 10.5-15 Platelet Count 228 CUMM 150-450 Mean Platelet Volume 8.0 um3 7.4-10.4 Polysegmented Neutrophil 66 % 38-83 Band Neutrophil 1 % 0-8 Lymphocyte 25 % 25-47 Monocyte 6 % 0-13 Eosinophil 2 % 0-6 Absolute Neutrophil Count 4.8 Laboratory test finding 10/15/2009 Alt (SGPT) 25 U/L 17-63 Lipid Profile (Trig/Chol/HDL) 10/15/2009 Triglyceride 152 mg/dL 40-200 Cholesterol 175 mg/dL Less Than 200 30 High Density Lipoprotein 37 mg/dL Low 40-60 31 Cholesterol/HDL Ratio 4.73 AVERAGE 1-4.97 Low Density Lipoprotein 108 mg/dL High Less Than 100 32 Basic Metabolic Panel 10/15/2009 Sodium 136 mmol/L 135-145 Potassium 4.0 mmol/L 3.5-5.0 Chloride 103 mmol/L 101-111 Co2 (Carbon Dioxide) 26.0 mmol/L 22-32 Anion Gap 7.0 mmol/L 2-11 33 Glucose 201 mg/dL High 70-100 34 BUN 11 mg/dL 6-24 Creatinine 0.90 mg/dL 0.50-1.40 One Over Creatinine 1.10 BUN/Creatinine Ratio 12.2 8-20 Calcium 9.0 mg/dL 8.1-9.9 35 eGFR Non- 89.2 > 60 eGFR 107.9 > 60 36 Urine Micro Inhouse 08/20/2009 Ua WBC - Ua RBC - Ua Casts - Ua Epi - Ua Other - Ua Glucose 1+ Ua Bilirubin - Ua Ketones - Ua Specific [place] 1.030 Ua Blood - Ua PH 5.0 Ua Protein tr Ua Urobilinogen - Ua Nitrite - Ua Leukocytes - 1 void, clear, yellow 2 Desirable <150 Borderline high 150-199 High 200-499 Very High >500 3 Desirable <200 Borderline high 200-239 High >239 4 Low <40 Desirable: 40-60 High: >60 5 Desirable: <100 mg/dL Near Optimal: 100-129 mg/dL Borderline High: 130-159 mg/dL High: 160-189 mg/dL Very High: >189 mg/dL 6 Note: Persistent reduction for 3 months or more in an eGFR <60 mL/min/1.73 m2 defines CKD. Patients with eGFR values >/=60 mL/min/1.73 m2 may also have CKD if evidence of persistent proteinuria is present. The original MDRD equation for estimated GFR is not valid for patients less than 18 years of age. Additional information may be found at www.kdoqi.org. 7 Values below the stated reference ranges of AST and ALT can be seen in normal populations. Clinical correlation is suggested. 8 0.0 - 0.045 ng/mL: Normal 0.046 - 0.5 ng/mL: Suggestive 0.6 - 1.5 ng/mL: Consistent 9 THERAPEUTIC INR RANGE: 2.0 - 3.0 DVT, Pulmonary embolus, prophylaxis against venous thrombosis or systemic embolization in high risk patients. 2.5 - 3.5 Mechanical heart valves 10 RUN DATE: 06/06/13 [facility] LAB LIVE PAGE 1 RUN TIME: [address] [place], [place] [address] Specimen Inquiry Name: NILAM AWAN : [address]: Alber Argueta MD Acct: [id number] Unit: [id number] AGE: 73 Location: [facility] Re06/03/13 SEX: M Status: REG REF SPEC: [id number] ESPERANZA: 06/03/13-1012 [facility] DR: Alber Argueta MD REQ: [id number] RECD: 06/03/132700 STATUS: SOUT _ ORDERED: LEVEL IV/4 FINAL DIAGNOSIS 1. Skin, left upper back, punch biopsy: A. Basal cell carcinoma, superficial pattern. B. Lesion approaches to within 0.1 mm. of the unoriented lateral margin. 2. Skin, right upper medial back, punch biopsy: Hemangioma. 3. Skin, right upper back lateral, punch biopsy: A. Basal cell carcinoma, superficial pattern. B. Lesion extends to within 0.1 mm. of the unoriented lateral margin. 4. Skin, right mid back, punch biopsy: A. Actinic keratosis with excoriation. B. No evidence of melanocytic neoplasia identified. CLINICAL HISTORY Personal history of melanoma. 1) 3 mm. punch, full thickness 2 cm. ovoid macular red lesion; 2) 2 cm. ovoid macular red lesion, 3 mm. punch full thickness; 3) 1 cm. nodule, 3 mm. punch, full thickness; 4) 1 cm. macular red lesion, 3 mm. punch, full thickness PRE-OPERATIVE DIAGNOSIS 238.2 CONTINUED ON NEXT PAGE * ML=Testing performed at Main Lab DEPARTMENT OF PATHOLOGY, [facility] [place], [place] [address] Guido Moreno M.D. Director [facility] Permit #[id number] RUN DATE: 06/06/13 [facility] LAB LIVE PAGE 2 RUN TIME: 1431 [facility] [employer] [place], [place] [address] Specimen Inquiry Patient: LAWANDA AWANSola Etienne SR [id number] (Continued) GROSS DESCRIPTION (Continued) GROSS DESCRIPTION 1. The specimen is received in formalin labeled Nilam Awan, Left Upper Back, and consists of a 0.2 x 0.2 x 1.0 cm. punch biopsy of skin. Submitted entirely, one cassette. 2. The specimen is received in formalin labeled Nilam Awan Right Upper Medial Back, and consists of a 0.2 x 0.2 x 0.7 cm. punch biopsy of skin. Submitted entirely, one cassette. 3. The specimen is received in formalin labeled Nilam Awan, Right Upper Back Lateral, and consists of a 0.2 x 0.2 x 0.4 cm. punch biopsy of skin. Submitted entirely, one cassette. 4. The specimen is received in formalin labeled Nilam Awan, Right Mid Back , and consists of a 0.2 x 0.2 x 0.6 cm. punch biopsy of skin. Submitted entirely, one cassette. 1. Signed (signature on file) Guido Moreno MD [id number] END OF REPORT * ML=Testing performed at Main Lab DEPARTMENT OF PATHOLOGY, [address] [place] [address] Guido Moreno M.D. Director [facility] Permit #[id number] Note: Persistent reduction for 3 months or more in an eGFR <60 mL/min/1.73 m2 defines CKD. Patients with eGFR values >/=60 mL/min/1.73 m2 may also have CKD if evidence of persistent proteinuria is present. The original MDRD equation for estimated GFR is not valid for patients less than 18 years of age. Additional information may be found at www.kdoqi.org. 12 Specimen Comments: ONLY 1 TEST NEEDS TO BE DONE 13 Microalbuminuria in a random sample is defined as: Microalbumin/Creatinine ratio of 30-299 ug/mg. 14 Because ethnic data is not always readily available, this report includes an eGFR for both -Americans and non- Americans. The National Kidney Disease Education Program (NKDEP) does not endorse the use of the MDRD equation for patients that are not between the ages of 18 and 70, are , have extremes of body size, muscle mass, or nutritional status, or are non- or non-. According to the National Kidney Foundation, irrespective of diagnosis, the stage of the disease is based on the level of kidney function: Stage Description GFR(mL/min/1.73 m(2)) 1 Kidney damage with normal or decreased GFR 90 2 Kidney damage with mild decrease in GFR 60-89 3 Moderate decrease in GFR 30-59 4 Severe decrease in GFR 15-29 5 Kidney failure <15 (or dialysis) 15 HDL Interpretation: Undesirable: High Risk: Less than 40 MG/DL Desirable: Low Risk: Greater than 60 MG/DL 16 LDL Interpretation: Low Risk Optimal Level: LDL Less than 100 MG/DL Near or Above Optimal: LDL 100-129 MG/DL Borderline High Risk: LDL 130-159 MG/DL High Risk: LDL 160-189 MG/DL Very High Risk: LDL Greater than 189 MG/DL 17 RUN DATE: 03/16/12 [facility] LAB LIVE PAGE 1 RUN TIME: [address] [place], [place] [address] Specimen Inquiry Name: NILAM AWAN Lowell CHAPA : [address]: Alber Argueta MD Acct: [id number] Unit: [id number] AGE: 71 Location: [facility] Re03/12/12 SEX: M Status: REG REF SPEC: [id number] ESPERANZA: 03/12/12-[address]: Alber Argueta MD REQ: [id number] RECD: 03/15/12 STATUS: SOUT _ ORDERED: LEVEL IV FINAL DIAGNOSIS Skin, left index mid finger, excision: Verruca vulgaris. PRE-OPERATIVE DIAGNOSIS Wart persisted after several home treatments. GROSS DESCRIPTION The specimen is received in formalin labelled Nilam EtienneMykel Awan, Skin, and consists of an irregular brown-red variegated verrucoid skin fragment measuring 0.8 x 0.7 x 0.4 cm. The specimen is inked, sectioned, and submitted entirely, one cassette. Signed (signature on file) Guido Moreno MD [id number] END OF REPORT * ML=Testing performed at Main Lab DEPARTMENT OF PATHOLOGY, [address] [place] [address] Guido Moreno M.D. Director [facility] Permit #[id number] MICROALBUMINURIA IN A RANDOM SAMPLE IS DEFINED : MICROALBUMIN/CREATININE RATIO OF 30-299 ug/mg. . 19 Anion gap measurement may be of limited value in the presence of any alkalosis, especially in a combined acid base disorder. . 20 Because ethnic data is not always readily available, this report includes an eGFR for both -Americans and non- Americans. The National Kidney Disease Education Program (NKDEP) does not endorse the use of the MDRD equation for patients that are not between the ages of 18 and 70, are , have extremes of body size, muscle mass, or nutritional status, or are non- or non-. According to the National Kidney Foundation, irrespective of diagnosis, the stage of the disease is based on the level of kidney function: Stage Description GFR(mL/min/1.73 m(2)) 1 Kidney damage with normal or decreased GFR 90 2 Kidney damage with mild decrease in GFR 60-89 3 Moderate decrease in GFR 30-59 4 Severe decrease in GFR 15-29 5 Kidney failure <15 (or dialysis) 21 CHOLESTEROL INTERPRETATION: Desirable: Less than 200 MG/DL Borderline-High Risk: 200-239 MG/DL High-Risk: 240 MG/DL and over 22 HDL INTERPRETATION: Undesirable: High Risk: Less than 40 MG/DL Desirable: Low Risk: Greater than 60 MG/DL 23 LDL INTERPRETATION: Low Risk Optimal Level: LDL Less than 100 MG/DL Near or Above Optimal: LDL 100-129 MG/DL Borderline High Risk: LDL 130-159 MG/DL High Risk: LDL 160-189 MG/DL Very High Risk: LDL Greater than 189 MG/DL 24 THERAPEUTIC TARGET FOR THE TREATMENT OF DIABETES MELLITUS PATIENTS IS <7% HBA1C, AND IN SELECTIVE PATIENTS <6.0%. PLEASE REFER TO [employer] DIABETIC CARE GUIDELINES FOR FURTHER INFORMATION. 25 CHOLESTEROL INTERPRETATION: Desirable: Less than 200 MG/DL Borderline-High Risk: 200-239 MG/DL High-Risk: 240 MG/DL and over 26 HDL INTERPRETATION: Undesirable: High Risk: Less than 40 MG/DL Desirable: Low Risk: Greater than 60 MG/DL 27 LDL INTERPRETATION: Low Risk Optimal Level: LDL Less than 100 MG/DL Near or Above Optimal: LDL 100-129 MG/DL Borderline High Risk: LDL 130-159 MG/DL High Risk: LDL 160-189 MG/DL Very High Risk: LDL Greater than 189 MG/DL 28 THERAPEUTIC TARGET FOR THE TREATMENT OF DIABETES MELLITUS PATIENTS IS <7% HBA1C, AND IN SELECTIVE PATIENTS <6.0%. PLEASE REFER TO [employer] DIABETIC CARE GUIDELINES FOR FURTHER INFORMATION. 29 MICROALBUMINURIA IN A RANDOM SAMPLE IS DEFINED : MICROALBUMIN/CREATININE RATIO OF 30-299 ug/mg. . 30 CHOLESTEROL INTERPRETATION: Desirable: Less than 200 MG/DL Borderline-High Risk: 200-239 MG/DL High-Risk: 240 MG/DL and over 31 HDL INTERPRETATION: Undesirable: High Risk: Less than 40 MG/DL Desirable: Low Risk: Greater than 60 MG/DL 32 LDL INTERPRETATION: Low Risk Optimal Level: LDL Less than 100 MG/DL Near or Above Optimal: LDL 100-129 MG/DL Borderline High Risk: LDL 130-159 MG/DL High Risk: LDL 160-189 MG/DL Very High Risk: LDL Greater than 189 MG/DL 33 Anion gap measurement may be of limited value in the presence of any alkalosis, especially in a combined acid base disorder. . 34 Note change in reference range as of 10/21/07. The change was based on recommendations from the [place] [employer]. 35 Please note change in reference range effective 07 . 36 Because ethnic data is not always readily available, this report includes an eGFR for both -Americans and non- Americans. The National Kidney Disease Education Program (NKDEP) does not endorse the use of the MDRD equation for patients that are not between the ages of 18 and 70, are , have extremes of body size, muscle mass, or nutritional status, or are non- or non-. According to the National Kidney Foundation, irrespective of diagnosis, the stage of the disease is based on the level of kidney function: Stage Description GFR(mL/min/1.73 m(2)) 1 Kidney damage with normal or decreased GFR 90 2 Kidney damage with mild decrease in GFR 60-89 3 Moderate decrease in GFR 30-59 4 Severe decrease in GFR 15-29 5 Kidney failure <15 (or dialysis) Procedures Date CPT Code Description Status Comment 06/12/2017 23166 Electrocardiogram Complete Completed 04/06/2017 Diabetic Foot Exam Completed 07/31/2016 Diabetic Retinal Eye Exam Completed approx date, per pt ([facility]) 04/08/2016 Colonoscopy Completed 04/08/2016: 6 polyps incl 4 TA's (incl a 1.5cm sessile transverse polyp); fu 3 yrs 2019 (Dr Villalpando) 09/07/15: 5mm sessile polyp asc colon; no endoscopic evidence of any significant findings in the distal asceneding colon, in the cecum and in the ileocecal valve when examined with a TTS ultrasound probe (Dr Leda Martinez at [facility]); advised repeat C-scope w/ Dr Govea in 6 months 05/2015: 'polyp removed' per pt (Dr Villalpando) 02/04: Dr Villalpando 03/27/2015 55887 Electrocardiogram Complete Completed 11/24/2013 51331 Electrocardiogram Complete Completed 06/03/2013 54932 Biopsy Skin Lesion Each Addtl Completed 06/03/2013 37328 Biopsy Skin Lesion Single Completed 11/05/2012 07177 Electrocardiogram Complete Completed 11/05/2012 63098 Electrocardiogram Complete Completed 05/04/2012 97966 Destruction Of Skin Lesions Up Completed To 14 Flat Warts/Molluscum Contag 03/12/2012 20929 Destruction Of Skin Lesions Up Completed To 14 Flat Warts/Molluscum Contag 11/05/2011 94699 Electrocardiogram Complete Completed 11/13/2010 03904 Electrocardiogram Complete Completed 08/22/2009 0 Payment Completed 08/20/2009 38798 Electrocardiogram Complete Completed Encounters Type Date Location Provider CPT E/M Dx Office Visit 10/16/2017 2:15p Main Office Gonsalo Child M.D. 39177 E11.9 I08.0 R06.00 E11.65 Office Visit 09/16/2017 1:45p Main Office Gonsalo Child M.D. 59860 E11.9 I10 E11.65 Office Visit 07/15/2017 9:00a Main Office Gonsalo Child M.D. 25627 R13.10 E11.9 I10 Z86.010 K22.4 Office Visit 07/06/2017 4:00p Main Office Gonsalo Child M.D. 23308 R13.10 E11.9 Z79.84 Office Visit 06/26/2017 10:30a Main Office Nurse's Schedule 86337 E11.65 Office Visit 06/12/2017 11:15a Main Office Gonsalo Child M.D. 82671 I10 E11.9 Z79.84 E78.00 Z86.010 D51.9 Office Visit 05/08/2017 1:30p Main Office Gonsalo Child M.D. 15510 E11.9 I10 Z86.010 E78.00 Z23 Z79.84 E11.65 Office Visit 04/06/2017 9:45a Main Office Gonsalo Child M.D. 71104 E11.9 I10 I48.91 E78.00 I08.0 Z86.010 Z23 Office Visit 03/27/2015 1:45p Main Office Gonsalo Child M.D. 59280 I48.91 I10 E11.9 Office Visit 12/20/2014 1:45p Main Office Gonsalo Child M.D. 23298 E11.9 M25.572 M19.072 I10 E78.0 R13.14 Z12.11 I08.0 Z23 Z41.8 Office Visit 07/18/2014 4:00p Main Office Gonsalo Child M.D. 54390 719.47 715.17 Office Visit 06/21/2014 1:45p Main Office Gonsalo Child M.D. 09898 250.00 401.1 424.0 424.1 272.0 Office Visit 01/23/2014 11:15a Main Office Gonsalo Child M.D. 08443 386.11 424.1 424.0 401.1 250.00 396.0 v04.81 v07.2 Office Visit 11/24/2013 1:05p Main Office Alber Argueta M.D. 91642 250.00 401.1 272.0 V65.49 Office Visit 06/13/2013 4:15p Main Office Alber Argueta M.D. 36775 173.59 702.0 228.01 Office Visit 05/06/2013 8:55a Main Office Gonsalo Child M.D. 01820 250.00 427.31 401.1 272.0 V70.0 709.9 V76.44 Office Visit 11/05/2012 10:00a Main Office Gonsalo Child M.D. 85012 250.02 427.31 401.1 272.0 272.0 401.1 427.31 250.02 Office Visit 05/04/2012 8:30a Main Office Gonsalo Child M.D. 92746 250.02 401.1 272.0 078.19 427.31 729.5 Office Visit 03/12/2012 3:25p Main Office Alber Argueta M.D. 16202 078.19 Office Visit 11/05/2011 8:55a Main Office Gonsalo Child M.D. 83695 250.02 401.1 272.0 V04.81 V07.2 Office Visit 06/04/2011 10:15a Main Office Gonsalo Child M.D. 90602 250.02 401.1 272.0 394.0 Office Visit 03/19/2011 9:30a Main Office Gonsalo Child M.D. 68515 724.5 922.1 E885.9 Office Visit 03/04/2011 2:30p Main Office Gonsalo Child M.D. 65199 250.02 401.1 272.0 Office Visit 11/13/2010 1:45p Main Office Gonsalo Child M.D. 19341 250.02 401.1 272.0 v04.81 V07.2 Office Visit 07/22/2010 1:30p Main Office Gonsalo Child M.D. 33938 250.02 401.1 272.0 Office Visit 04/24/2010 10:45a Main Office Gonsalo Child M.D. 32943 250.02 401.1 272.0 V65.49 Office Visit 01/22/2010 9:30a Main Office Gonsalo Child M.D. 250.02 272.0 401.1 V65.49 V04.81 v04.81 V03.82 v03.82 V06.1 v06.1 v07.2 Office Visit 10/22/2009 8:45a Main Office Gonsalo Child M.D. 01589 250.02 272.0 401.1 Office Visit 08/20/2009 1:30p Main Office Gonsalo Child M.D. 68288 401.1 272.0 427.9 250.00 607.84 V10.82 692.71 Plan of Care Future Appointment(s):12/16/2017 2:45 pm - Gonsalo Child M.D. at Main Hnmtyw3611/04/2017 - Gonsalo Child M.D.R04.0 EpistaxisComments:Counseled to avoid sticking materials up into his nose, to treat bleeds w/ constant pressure for 5-10 minutes then avoiding blowing nose afterward. Also advised to avoid picking nose and counseled on using a nasal lubricant.Referral:[facility], OtorhinolaryngologyFollow up:Do not stick anything up your nose! Treat bleeds with constant pressure for 5-10 minutes by squeezing the soft part at the bottom of your nose, then avoid blowing your nose afterward. Do not pick your nose! Get an OTC nasal lubricant gel and apply a small amount to your right nostril 3x/day.Z23 Encounter for immunizationComments:Encouraged flu vaccine wc was accepted. VIS provided.
--- OUTSIDE RECORDS SUMMARY | 2017-11-10 11:00 | XMS REPORT ---
:1940 External Reference #:[id number] Author Organization [facility] 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 Gonsalo Child MD Primary Care Physician Unavailable Payers Type Date Identification Numbers Payment Provider Subscriber Commercial Expires: Policy Number: [facility] Leroy Awan SR 2015 [id number] Medicare PayID: [id number] [address] [address] [place] [address] Commercial Policy Number: [id number] [employer] Leroy Awan SR PayID: [id number] [address] [address] [place] [address] Problems Date Description Provider Status Onset: 04/09/2011 Aortic valve disorder Mirta Rodriguez, MIAH, Active QC CHEMIST Onset: 04/09/2011 Mitral valve disorder Mirta Rodriguez, MIAH, Active QC CHEMIST Onset: 04/09/2011 Atrial flutter Mirta Rodriguez, MIAH, Active QC CHEMIST Onset: 04/09/2011 Benign essential hypertension Mirta Rodriguez, MIAH, Active QC CHEMIST Onset: 04/09/2011 Hyperlipidemia Mirta Rodriguez, MIAH, Active QC CHEMIST Onset: 08/09/2015 Type 2 diabetes mellitus Dima Avery M.D., Active FACC Onset: 02/01/2015 Essential hypertension Dima Avery M.D., Active FAC Family History Date Family Member(s) Problem(s) Comments Father due to Pneumonia () : (age 60 Years) Father due to Cancer : (age 83 Years) Mother due to Diabetes Social History Type Date Description Comments Lives With Julia Diet Patient is on a low fat diet Diet Patient is on a low carb diet Diet Patient is on a low sugar diet 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 Independent with all ADL's Cigarette Use 27 Years Quit Cigarette Use Pack Years - 10 ETOH Use Denies alcohol use Daily Caffeine Consumes on average 2 cups of decaff coffee per day Allergies, Adverse Reactions, Alerts Date Description Reaction Status Severity Comments 01/30/2014 Cipro active 05/08/2008 NKDA inactive Medications Medication Date Status Form Strength Qnty SIG Indications Ordering Provider Glimepiride / Active 4mg 1 tabs po Digiovann 0000 bid Teodoro whitaker MD Viagra / Active 100mg prn Digiovann 0000 Teodoro whitaker MD Simvastatin / Active Tablets 40mg 1 po qd Rodriguez, 0000 Mirta Castano , MSN, QC CHEMIST Aspir-Low / Active Tablets DR 81mg 1 po qd Unknown 0000 Metformin HCL / Active Tablets 500mg 60tabs 2 tabs po Unknown 0000 bid Magnesium Oxide / Active Tablets 250mg 60tabs by mouth Unknown 0000 qd Chromium / Active Tablets 200mcg 1 po qd Unknown Picolinate Ultra 0000 Cinnamon / Active Capsules 500mg 1 by Unknown 0000 mouth every day Amlodipine / Active Tablets 5mg 90tabs 1 by Kwasi Besylate 0000 mouth Biswarsamra, every day Invokana / Active Tablets 100mg 1 by Unknown 0000 mouth every day Propafenone HCL / Active Tablets 150mg 270tab take one Daviddonavanko 0000 s tablet by Dima M.D., every 8 FACC hours Diphenydramine / Active Tablets 25mg 2 by Unknown 0000 mouth at bedtime Vitamin B12 / Active Tablets ER 1000mcg 2 by Unknown 0000 mouth once a day Metoprolol / Active Tablets 25mg 180tab 1 by Silcoff Tartrate 0000 s mouth Gonsalo every day Tamsulosin HCL / Active Capsules 0.4mg 30caps 1 by Unknown 0000 mouth every day Basaglar Kwikpen / Active Solution 100Unit/ML Silcoff, 0000 Pen-Inject MD Gonsalo Metoprolol / Hx 25mg 1 tab by Digiovann Tartrate 0000 mouth q a, day Teodoro Vega MD Simvastatin / Hx 20mg 30unit po qd Rodriguez, 0000 s Mirta Castano , MSN, QC CHEMIST Vitamin C / Hx Chewtabs 100mg po qd prn Davidencolton 0000 , Dima Redd M.D., FAC Actos / Hx Tablets 15mg 1 po qd Unknown 0000 Actos / Hx Tablets 30mg 1 po qd Unknown 0000 Tylenol PM Extra / Hx Tablets 500-25mg 1 hs Unknown Strength 0000 Bydureon / Hx Pen 2mg Gallerani 0000 , RAMYA Ruvalcaba Vital Signs Date Vital Result Comment 11/03/2017 BP Systolic Sitting Left Arm 118 mmHg BP Diastolic Sitting Left Arm 72 mmHg Heart Rate 73 /min Respiratory Rate 18 /min Height 71 inches 5'11" Weight 181.00 lb BMI (Body Mass Index) 25.2 kg/m2 BSA (Body Surface Area) 2.02 m2 Ider body weight in kilograms 78 O2 % BldC Oximetry 94 % Ora 09/04/2016 BP Systolic Sitting Left Arm 98 mmHg BP Diastolic Sitting Left Arm 64 mmHg Heart Rate 53 /min Respiratory Rate 16 /min Height 71 inches 5'11" Weight 192.00 lb BMI (Body Mass Index) 26.8 kg/m2 BSA (Body Surface Area) 2.07 m2 Ider body weight in kilograms 78 02/08/2016 BP Systolic Sitting Left Arm 128 mmHg BP Diastolic Sitting Left Arm 78 mmHg Heart Rate 58 /min Height 71 inches 5'11" Weight 200.00 lb BMI (Body Mass Index) 27.9 kg/m2 BSA (Body Surface Area) 2.11 m2 08/09/2015 BP Systolic Standing Resting Right Arm 120 mmHg BP Diastolic Standing Resting Right Arm 68 mmHg Heart Rate 62 /min Height 71 inches 5'11" Weight 206.00 lb BMI (Body Mass Index) 28.7 kg/m2 BSA (Body Surface Area) 2.14 m2 Ider body weight in kilograms 78 02/01/2015 BP Systolic Sitting Left Arm 130 mmHg BP Diastolic Sitting Left Arm 64 mmHg Heart Rate 60 /min Respiratory Rate 16 /min Height 71.5 inches 5'11.50" Weight 206.00 lb BMI (Body Mass Index) 28.3 kg/m2 BSA (Body Surface Area) 2.15 m2 10/26/2014 BP Systolic Sitting Right Arm 126 mmHg BP Diastolic Sitting Right Arm 74 mmHg Heart Rate 63 /min Respiratory Rate 18 /min Height 71.5 inches 5'11.50" Weight 208.31 lb 8 BMI (Body Mass Index) 28.6 kg/m2 BSA (Body Surface Area) 2.16 m2 02/22/2014 BP Systolic Sitting Right Arm 120 mmHg BP Diastolic Sitting Right Arm 68 mmHg Heart Rate 76 /min Respiratory Rate 16 /min Height 71.5 inches 5'11.50" Weight 210.00 lb BMI (Body Mass Index) 28.9 kg/m2 BSA (Body Surface Area) 2.16 m2 01/30/2014 BP Systolic Sitting Right Arm 112 mmHg BP Diastolic Sitting Right Arm 64 mmHg Heart Rate 70 /min Respiratory Rate 16 /min Height 71.5 inches 5'11.50" Weight 205.00 lb BMI (Body Mass Index) 28.2 kg/m2 BSA (Body Surface Area) 2.14 m2 04/09/2011 BP Systolic Sitting Right Arm 142 mmHg BP Diastolic Sitting Right Arm 84 mmHg Heart Rate 64 /min Regular Respiratory Rate 16 /min Height 71.5 inches 5'11.50" Weight 201.00 lb BMI (Body Mass Index) 27.6 kg/m2 10/07/2010 BP Systolic Sitting Right Arm 124 mmHg BP Diastolic Sitting Right Arm 76 mmHg Heart Rate 64 /min Regular Respiratory Rate 20 /min Height 71.5 inches 5'11.50" Weight 195.00 lb BMI (Body Mass Index) 26.8 kg/m2 04/02/2010 BP Systolic Sitting Right Arm 128 mmHg BP Diastolic Sitting Right Arm 80 mmHg Heart Rate 198 /min Respiratory Rate 16 /min Height 71.5 inches 5'11.50" Weight 198.00 lb BMI (Body Mass Index) 27.2 kg/m2 01/16/2009 Heart Rate 60 /min Regular Respiratory Rate 16 /min Weight 193.00 lb Results Test Date Test Result H/L Range Note PT W/Inr 12/04/2008 International Normalized Ratio 3.5 Protime 12/01/2008 Protime 35.7 seconds High 11.8-14.6 Inr 3.5 High 0.9-1.1 1 PT W/Inr 11/29/2008 International 2.8 Normalized Ratio PT W/Inr 11/28/2008 International 4.0 Normalized Ratio Laboratory test 11/20/2008 Lactic Acid 1.60 mmol/L 0.67-2.47 finding Laboratory test 11/20/2008 Lipase 187 U/L 114-286 2 finding CBC/Manual 11/20/2008 White Blood Count 21.6 K/uL High 3.4-10.5 2 Differential Red Blood Count 5.14 M/uL 4.20-5.80 2 Hemoglobin 15.3 gm/dL 12.8-17.0 2 Hematocrit 45.2 % 38.0-48.0 2 Mean Cell Volume 87.9 fl 80.0-96.0 2 Mean Corpuscular HGB 29.8 pg 27.0-33.0 2 Mean Corpuscular HGB Conc 33.8 g/dL 31.7-36.0 2 Platelet Count 527 K/uL High 150-400 2 Red Cell Distri Width %CV 13.4 % 11.6-15.8 2 Mean Platelet Volume 9.4 fL 6.6-10.6 2 Total Cells Counted 100 #CELLS 2 Myelocyte% 1 % High -0 2 Band% 6 % 0-8 2 Neutrophils% 76 % High 33-73 2 Lymph% 8 % Low 17-56 2 Atypical Lymph% 2 % 0-7 2 Monocyte% 7 % 0-10 2 Platelet Estimate MOD INCREASE 2 Anisocytosis 0-1+ 2 Differential Comment large platelets <SEE NOTE> 2, 3 Protime 11/20/2008 Protime 29.9 seconds High 11.8-14.6 2 Inr 2.8 High 0.9-1.1 2, 4 Protime Canceled By Lab 2 Laboratory test 11/20/2008 CBS W/Automated Diff Canceled By Lab 2, 5 finding Urine Screen 11/20/2008 Urine Color YELLOW Yellow 2 Urine Clarity CLEAR Clear 2 Urine Glucose - Dipstick NEGATIVE mg/dL Negative 2 Urine Bilirubin - Dipstick NEGATIVE Negative 2 Urine Ketone NEGATIVE mg/dL Negative 2 Urine Specific Dupuyer >=1.030 1.010-1.030 2 Urine Blood NEGATIVE Negative 2 Urine PH 5.5 Low 6.5-7.5 2 Urine Protein - Dipstick NEGATIVE mg/dL Negative 2 Urine Urobilinogen - Dipstick 0.2 E.U./dL 0.2-1.0 2 Urine Nitrite - Dipstick NEGATIVE Negative 2 Urine Leuk Esterase NEGATIVE Negative 2 CMP 11/20/2008 Glucose 193 mg/dL High 76-115 2 BUN 21 mg/dL 5-23 2 Creatinine 1.2 mg/dL 0.5-1.4 2 Glom Filtration Rate, Estimate >60 mL/min >60 2 If >60 mL/min >60 2, 6 BUN/Creat 17.5 2 Sodium 137 mEq/L 136-145 2 Potassium 4.6 mEq/L 3.5-5.1 2 Chloride 105 mEq/L 98-107 2 Carbon Dioxide 25 mEq/L 21-32 2 Anion Gap 12 mEq/L 8-16 2 Calcium 8.4 mg/dL Low 8.5-10.1 2 Total Protein 5.9 g/dL Low 6.3-8.0 2 Albumin 2.5 g/dL Low 3.5-5.0 2 Globulin 3.4 gm/dL 1.9-4.3 2 Alb/Glob 0.7 2 Bilirubin,Total 0.3 mg/dL 0.2-1.2 2 Sgot/Ast 23 U/L 16-40 2 SGPT/Alt 68 U/L High 30-65 2 Alkaline Phosphatase 94 U/L 50-136 2 Laboratory test 11/20/2008 Stool Occult NEGATIVE Negative 2 finding Blood-Single Spec Protime 10/27/2008 Protime 29.1 seconds High 11.8-14.6 Inr 2.7 High 0.9-1.1 7 Laboratory test finding 10/27/2008 Sgot/Ast 10 U/L Low 16-40 SGPT/Alt 39 U/L 30-65 Glycohemoglobin A1c 8.4 % High 4.8-6.0 8 LDL Cholesterol Profile 10/27/2008 Cholesterol 188 mg/dL 120-200 Triglycerides 217 mg/dL High 0-210 HDL Cholesterol 41 mg/dL 32-96 LDL-Cholesterol 104 mg/dL 62-185 Basic Metabolic Panel 10/27/2008 Glucose 237 mg/dL High 76-115 BUN 19 mg/dL 5-23 Creatinine 1.1 mg/dL 0.5-1.4 Glom Filtration Rate, Estimate >60 mL/min >60 If >60 mL/min >60 9 BUN/Creat 17.2 Sodium 136 mEq/L 136-145 Potassium 4.3 mEq/L 3.5-5.1 Chloride 101 mEq/L 98-107 Carbon Dioxide 28 mEq/L 21-32 Anion Gap 11 mEq/L 8-16 Calcium 8.8 mg/dL 8.5-10.1 PT W/Inr 10/27/2008 International Normalized Ratio 2.8 PT W/Inr 10/12/2008 International Normalized Ratio 1.8 PT W/Inr 10/12/2008 International Normalized Ratio 2.8 1 THERAPEUTIC INR RANGE: 2.0 - 3.0 DVT, Pulmonary embolus, prophylaxis against venous thrombosis or systemic embolization in high risk patients. 2.5 - 3.5 Mechanical heart valves 2 Specimen: [id number] - TESTS: CBCDIFF, PT, CBS IS PATIENT ON ANTICOAGULANTS? COUMADIN TEST: CBCDIFF TEST: PT QUERY: Anticoagulant Therapy? QUERY: Date of Last Dose: QUERY: Time of Last Dose: TEST: CBS 3 large platelets present 4 THERAPEUTIC INR RANGE: 2.0 - 3.0 DVT, Pulmonary embolus, prophylaxis against venous thrombosis or systemic embolization in high risk patients. 2.5 - 3.5 Mechanical heart valves 5 11/20/08 LAB.JAM1 DIFF NEEDED 6 Note: Persistent reduction for 3 months or more in an eGFR <60 mL/min/1.73 m2 defines CKD. Patients with eGFR values >/=60 mL/min/1.73 m2 may also have CKD if evidence of persistent proteinuria is present. The original MDRD equation for estimated GFR is not valid for patients less than 18 years of age. Additional information may be found at www.kdoqi.org. 7 THERAPEUTIC INR RANGE: 2.0 - 3.0 DVT, Pulmonary embolus, prophylaxis against venous thrombosis or systemic embolization in high risk patients. 2.5 - 3.5 Mechanical heart valves 8 Current guidelines recommend a treatment goal of <7% for diabetic patients. This method will measure glycosylated hemoglobin variants, HbS, HbG, HbH, HbWayne, HbC, HbE, etc. Other hemoglobin- opathies may give incorrect results with this test. Note change in expected values for healthy individuals 9 Note: Persistent reduction for 3 months or more in an eGFR <60 mL/min/1.73 m2 defines CKD. Patients with eGFR values >/=60 mL/min/1.73 m2 may also have CKD if evidence of persistent proteinuria is present. The original MDRD equation for estimated GFR is not valid for patients less than 18 years of age. Additional information may be found at www.kdoqi.org. Procedures Date CPT Code Description Status 11/03/2017 91617 EKG-Tracing And Report Completed 08/08/2016 81059 ECHO Transthoracic Inc Performance Continuous Completed Electrocardio 02/08/2016 15707 EKG-Tracing And Report Completed 09/24/2015 33340 Echocardiogram Complete Completed 02/19/2015 95389 Echocardiogram Complete Completed 10/26/2014 40676 EKG-Tracing And Report Completed 08/28/2014 55860 Echocardiogram Complete Completed 02/16/2014 98237 ECHO Transthoracic Inc Performance Continuous Completed Electrocardio 01/30/2014 59236 EKG-Tracing And Report Completed 01/09/2014 01267 Echocardiogram Complete Completed 02/20/2013 76234 Echocardiogram Complete Completed 04/09/2011 81098 Echocardiogram Complete Completed 04/09/2011 21800 EKG-Tracing And Report Completed 04/06/2010 18815 Echocardiogram Complete Completed 04/02/2010 32020 EKG-Tracing And Report Completed 01/16/2009 67242 EKG-Tracing And Report Completed 05/10/2008 52041 EKG Interpretation And Report Only Completed 05/09/2008 98956 EKG Interpretation And Report Only Completed 02/10/2008 67168 EKG-Tracing And Report Completed 01/25/2008 41704 Stress Test Interpre And Report Only Completed 01/25/2008 63679 Ejection Fraction Completed 01/25/2008 36772 Myocardial Wall Motion Completed 01/25/2008 99494 Cardiolite Stress/Rest Spect Completed 01/19/2008 16271 EKG-Tracing And Report Completed 12/30/2007 18191 Doppler ECHO Color Flow Mapping Completed 12/30/2007 59851 Doppler Echocardiogram Complete Completed 12/30/2007 85335 Echocariogram 2D Complete Completed Encounters Type Date Location Provider CPT E/M Dx Office Visit 11/03/2017 1:30p Cardiology Office Dima Avery, 73905 I34.2 M.Kelly, FACC I35.0 I48.3 E11.9 I10 Office Visit 09/04/2016 10:20a Cardiology Office Dima Avery, 52859 I34.2 M.D., FACC I35.0 I48.3 E11.9 I10 Office Visit 02/08/2016 11:20a Cardiology Office Dima Avery, 82470 I35.0 M.D., FACC I34.2 I48.3 E11.9 I10 Office Visit 08/09/2015 1:40p Cardiology Office Dima Avery, 69149 I35.0 M.D., FACC I34.2 I48.3 E11.9 E78.5 I10 Office Visit 02/01/2015 3:20p Cardiology Office Dima Avery, 38141 I35.0 M.D., FACC I34.0 I48.3 I10 Office Visit 10/26/2014 1:40p Cardiology Office Dima Avery, 61566 424.1 M.D., FACC 424.0 427.32 401.1 Office Visit 02/22/2014 1:20p Cardiology Office Dima Avery, 08950 424.1 M.D., FACC 424.0 427.32 401.1 Office Visit 01/30/2014 2:00p Cardiology Office Mirta Rodriguez, 86047 424.1 MSN, QC CHEMIST 427.32 401.1 272.4 424.0 250.00 Office Visit 01/10/2014 2:08p Cardiology Office Dima Avery, 38624 780.4 M.D., FACC Office Visit 02/20/2013 9:40a [facility] Ivelisse Paz M.D. 04403 780.4 [facility] 250.00 Office Visit 04/09/2011 3:00p Cardiology Office Mirta Rodriguez, 45385 424.1 MSN, QC CHEMIST 424.0 427.32 401.1 272.4 Office Visit 10/07/2010 1:20p Cardiology Office Mirta Rodriguez, 68883 424.1 MSN, QC CHEMIST 424.0 427.32 401.1 272.4 Office Visit 04/02/2010 10:40a Cardiology Office Dima Avery, 00750 427.32 M.D., FACC 401.1 272.4 785.2 Office Visit 01/16/2009 9:40a Cardiology Office Dima Avery, 41118 427.31 [facility]., [facility] 427.32 Office Visit 07/21/2008 9:30a Cardiology Office Dima Avery, 27370 427.32 M.D., FACC Office Visit 05/18/2008 10:30a Cardiology Office Dima Avery, 59065 427.32 M.D., FACC Office Visit 02/10/2008 9:15a Cardiology Office Dima Avery, 09095 427.32 M.D., FACC Office Visit 01/19/2008 9:30a Cardiology Office Dima Avery, 65600 427.32 M.D., [facility] 401.1 272.4 Plan of Care Future Appointment(s):01/04/2018 9:20 am - Mirta Rodriguez, MSN, QC CHEMIST at Cardiology [id number]/03/2017 - Dima Avery M.D., FACCI34.2 Nonrheumatic mitral (valve) stenosisComments:Moderate MS with 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 His exercise capacity is severely reduced and now he admits it. He will see Dr. Snowden tomorrow.I35.0 Nonrheumatic aortic (valve) stenosisComments: Severe with 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 His exercise capacity is severely reduced. He will see Dr. Snowden tomorrow.I48.3 Typical atrial flutterComments:No evidence of recurrence on [id number] Type 2 diabetes mellitus without complicationsComments:Followed by PCPI10 Essential (primary) hypertensionComments:ControlledAllFollow up:Follow up visit in two month.
--- OUTSIDE RECORDS SUMMARY | 2017-11-10 11:00 | XMS REPORT ---
:1940 External Reference #:[id number] [facility] Address [address] [place] [address] Phone [phone] Care Team Providers Name Role Phone Gonsalo Child MD Care Team Information Mobile Crane Operator Unavailable Gonsalo Child MD Primary Care Physician Unavailable Payers Type Date Identification Numbers Payment Provider Subscriber Commercial Expires: Policy Number: [facility] Leroy Awan SR 2015 [id number] Medicare PayID: [id number] [address] [address] [place] [address] Commercial Policy Number: [id number] [employer] Leroy Awan SR PayID: [id number] [address] [address] [place] [address] Problems Date Description Provider Status Onset: 04/09/2011 Aortic valve disorder Mirta Rodriguez, MIAH, Active [facility] Onset: 04/09/2011 Mitral valve disorder Mirta Rodriguez, MIAH, Active [facility] Onset: 04/09/2011 Atrial flutter Mirta Rodriguez, MIAH, Active [facility] Onset: 04/09/2011 Benign essential hypertension Mirta Rodriguez, MIAH, Active [facility] Onset: 04/09/2011 Hyperlipidemia Mirta Rodriguez, MIAH, Active [facility] Onset: 08/09/2015 Type 2 diabetes mellitus Dima [...] qd Rodriguez, 0000 Mirta Castano , MSN, [facility] Aspir-Low / Active Tablets DR 81mg 1 [...] 20mg 30unit po qd Rodriguez, 0000 s Mrita Castano , MSN, [facility] Vitamin C / Hx Chewtabs 100mg po [...] kg/m2 BSA (Body Surface Area) 2.02 m2 [place] body weight in kilograms 78 O2 % BldC Oximetry 94 % Ora 09/04/2016 BP Systolic Sitting Left Arm 98 mmHg BP Diastolic Sitting Left Arm 64 mmHg Heart Rate 53 /min Respiratory Rate 16 /min Height 71 inches 5'11" Weight 192.00 lb BMI (Body Mass Index) 26.8 kg/m2 BSA (Body Surface Area) 2.07 m2 [place] body weight in kilograms 78 02/08/2016 BP [...] kg/m2 BSA (Body Surface Area) 2.14 m2 [place] body weight in kilograms 78 02/01/2015 BP [...] High 0.9-1.1 1 PT W/Inr 11/29/2008 International Normalized 2.8 Ratio PT W/Inr 11/28/2008 International Normalized 4.0 Ratio Laboratory test 11/20/2008 Lactic Acid 1.60 mmol/L 0.67-2.47 finding CMP 11/20/2008 Glucose 193 mg/dL High 76-115 2 BUN 21 mg/dL 5-23 2 Creatinine 1.2 mg/dL 0.5-1.4 2 Glom Filtration Rate, Estimate >60 mL/min >60 2 If >60 mL/min >60 2, 3 BUN/Creat 17.5 2 Sodium 137 mEq/L 136-145 [...] Phosphatase 94 U/L 50-136 2 Laboratory test finding 11/20/2008 Lipase 187 U/L 114-286 2 CBC/Manual Differential 11/20/2008 White Blood Count 21.6 K/uL High 3.4- 10.5 2 Red Blood Count 5.14 M/uL 4.20-5.80 2 [...] Differential Comment large platelets <SEE NOTE> 2, 4 Protime 11/20/2008 Protime 29.9 seconds High 11.8-14.6 2 Inr 2.8 High 0.9-1.1 2, 5 Protime Canceled By Lab 2 Laboratory test 11/20/2008 CBS W/Automated Diff Canceled By Lab 2, 6 finding Urine Screen 11/20/2008 Urine Color YELLOW Yellow 2 Urine Clarity CLEAR Clear 2 Urine Glucose - Dipstick NEGATIVE mg/dL Negative 2 Urine Bilirubin - Dipstick NEGATIVE Negative 2 Urine Ketone NEGATIVE mg/dL Negative 2 Urine Specific [place] >=1.030 1.010-1.030 2 Urine Blood NEGATIVE Negative 2 Urine PH 5.5 Low 6.5-7.5 2 Urine Protein - Dipstick NEGATIVE mg/dL Negative 2 Urine Urobilinogen - Dipstick 0.2 E.U./dL 0.2-1.0 2 Urine Nitrite - Dipstick NEGATIVE Negative 2 Urine Leuk Esterase NEGATIVE Negative 2 Laboratory test 11/20/2008 Stool Occult NEGATIVE [...] 2.8 PT W/Inr 10/12/2008 International Normalized Ratio 2.8 PT W/Inr 10/12/2008 International Normalized Ratio 1.8 1 THERAPEUTIC INR RANGE: 2.0 - 3.0 DVT, Pulmonary embolus, prophylaxis against venous thrombosis or systemic embolization in high risk patients. 2.5 - 3.5 Mechanical heart valves 2 Specimen: [id number] - TESTS: CBCDIFF, PT, CBS IS PATIENT ON ANTICOAGULANTS? COUMADIN TEST: CBCDIFF TEST: PT QUERY: Anticoagulant Therapy? QUERY: Date of Last Dose: QUERY: Time of Last Dose: TEST: CBS 3 Note: Persistent reduction for 3 months or more in an eGFR <60 mL/min/1.73 m2 defines CKD. Patients with eGFR values >/=60 mL/min/1.73 m2 may also have CKD if evidence of persistent proteinuria is present. The original MDRD equation for estimated GFR is not valid for patients less than 18 years of age. Additional information may be found at www.kdoqi.org. 4 large platelets present 5 THERAPEUTIC INR RANGE: 2.0 - 3.0 DVT, Pulmonary embolus, prophylaxis against venous thrombosis or systemic embolization in high risk patients. 2.5 - 3.5 Mechanical heart valves 6 11/20/08 LAB.JAM1 DIFF NEEDED 7 THERAPEUTIC INR RANGE: 2.0 - 3.0 [...] Procedures Date CPT Code Description Status 11/03/2017 57152 EKG-Tracing And Report Completed 08/08/2016 85718 ECHO Transthoracic Inc Performance Continuous Completed Electrocardio 02/08/2016 92814 EKG-Tracing And Report Completed 09/24/2015 87131 Echocardiogram Complete Completed 02/19/2015 81653 Echocardiogram Complete Completed 10/26/2014 96593 EKG-Tracing And Report Completed 08/28/2014 02422 Echocardiogram Complete Completed 02/16/2014 38047 ECHO Transthoracic [employer] Performance Continuous Completed Electrocardio 01/30/2014 65254 EKG-Tracing And Report Completed 01/09/2014 73252 Echocardiogram Complete Completed 02/20/2013 57738 Echocardiogram Complete Completed 04/09/2011 51124 Echocardiogram Complete Completed 04/09/2011 92944 EKG-Tracing And Report Completed 04/06/2010 11415 Echocardiogram Complete Completed 04/02/2010 68399 EKG-Tracing And Report Completed 01/16/2009 67046 EKG-Tracing And Report Completed 05/10/2008 52779 EKG Interpretation And Report Only Completed 05/09/2008 26419 EKG Interpretation And Report Only Completed 02/10/2008 91520 EKG-Tracing And Report Completed 01/25/2008 92780 Stress Test Interpre And Report Only Completed 01/25/2008 78811 Ejection Fraction Completed 01/25/2008 81013 Myocardial Wall Motion Completed 01/25/2008 61437 Cardiolite Stress/Rest Spect Completed 01/19/2008 71251 EKG-Tracing And Report Completed 12/30/2007 15891 Doppler ECHO Color Flow Mapping Completed 12/30/2007 75142 Doppler Echocardiogram Complete Completed 12/30/2007 25026 Echocariogram 2D Complete Completed Encounters Type Date Location Provider CPT E/M Dx Office Visit 11/03/2017 1:30p Cardiology Office Dima Avery, 33574 I34.2 M.Kelly, FACC I35.0 I48.3 E11.9 I10 Office Visit 09/04/2016 10:20a Cardiology Office Dima Avery, 94880 I34.2 M.D., FACC I35.0 I48.3 E11.9 I10 Office Visit 02/08/2016 11:20a Cardiology Office Dima Avery, 64824 I35.0 M.D., FACC I34.2 I48.3 E11.9 I10 Office Visit 08/09/2015 1:40p Cardiology Office Dima Avery, 52134 I35.0 M.D., FACC I34.2 I48.3 E11.9 E78.5 I10 Office Visit 02/01/2015 3:20p Cardiology Office Dima Avery, 12333 I35.0 M.D., FACC I34.0 I48.3 I10 Office Visit 10/26/2014 1:40p Cardiology Office Dima Avery, 40559 424.1 M.D., FACC 424.0 427.32 401.1 Office Visit 02/22/2014 1:20p Cardiology Office Dima Avery, 65244 424.1 M.D., FACC 424.0 427.32 401.1 Office Visit 01/30/2014 2:00p Cardiology Office Mirta Rodriguez, 35847 424.1 MSN, [facility] 427.32 401.1 272.4 424.0 250.00 Office Visit 01/10/2014 2:08p Cardiology Office Dima Avery, 39293 780.4 M.D., FACC Office Visit 02/20/2013 9:40a [facility] Ivelisse Paz M.D. 31844 780.4 [facility] 250.00 Office Visit 04/09/2011 3:00p Cardiology Office Mirta Rodriguez, 15986 424.1 MSN, [facility] 424.0 427.32 401.1 272.4 Office Visit 10/07/2010 1:20p Cardiology Office Mirta Rodriguez, 27594 424.1 MSN, [facility] 424.0 427.32 401.1 272.4 Office Visit 04/02/2010 10:40a Cardiology Office Dima Avery, 43118 427.32 M.D., FACC 401.1 272.4 785.2 Office Visit 01/16/2009 9:40a Cardiology Office Dima Avery, 55468 427.31 M.D., [facility] 427.32 Office Visit 07/21/2008 9:30a Cardiology Office Dima Avery, 70553 427.32 M.D., FACC Office Visit 05/18/2008 10:30a Cardiology Office Dima Avery, 31308 427.32 M.D., FACC Office Visit 02/10/2008 9:15a Cardiology Office Dima Avery, 49177 427.32 M.D., FACC Office Visit 01/19/2008 9:30a Cardiology Office Dima Avery, 18547 427.32 M.D., [facility] 401.1 272.4 Plan of Care Future Appointment(s):01/04/2018 9:20 am - Mirta Rodriguez, MSN, [facility] at Cardiology [id number]/03/2017 - Dima Avery M.D., FACCI34.2 Nonrheumatic mitral (valve) stenosisComments:Moderate MS with 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 His exercise capacity is severely reduced and now he admits it. He will see Dr. Snowden tomorrow.I35.0 Nonrheumatic aortic (valve) stenosisComments: Severe with 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 His exercise capacity is severely reduced. He will see Dr. Snowden tomorrow.I48.3 Typical atrial flutterComments:No evidence of recurrence on [id number] Type 2 diabetes mellitus without complicationsComments:Followed by PCPI10 Essential (primary) hypertensionComments:ControlledAllFollow up:Follow up visit in two month.
[2017-11-10 11:28] VITALS: BP 114/57
--- NOTE | 2017-11-10 11:51 | UC ---
Epistaxis Nasal HPI - HPI Summary HPI Summary: Pt c/o recurring nose bleeds. Pt was seen by his PCP, Dr. Child, and had his "nose cleaned out". Pt states that PCP told him to "let him know if his nose bleeds agina" and the he " would give pt a referral to an ENT if nose bleed again". Pt states that he is here for a referral to an ENT. Pt currently is taking PO anticoagulants. - History of Current Complaint Chief Complaint: UCGeneralIllness Stated Complaint: NOSE BLEED ON AND OFF Time Seen by Provider: 11/10/17 11:18 Hx Obtained From: Patient Onset/Duration: Sudden Onset, Lasting Minutes, Resolved Timing: Seconds Severity Initially: Mild Severity Currently: None Pain Intensity: 0 Character: Light Aggravating Factor(s): Nothing Associated Signs And Symptoms: Positive: Negative Related Hx: Anticoagulants - Allergies/Home Medications Allergies/Adverse Reactions: Allergies Allergy/AdvReac Type Severity Reaction Status Date / Time ciprofloxacin Allergy Blisters Verified 11/10/17 11:21 in Mouth and Throat Quinolones Allergy Tingling Verified 11/10/17 11:21 PMH/Surg Hx/FS Hx/Imm Hx Previously Healthy: Yes Cardiovascular History: Cardiac Disease - Surgical History Surgical History: Yes Surgery Procedure, Year, and Place: CARDIAC CATH - NO STENTS. LT SHOULDER = RCT. 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 2 hernia repairs. bilat legs- varicose vein stripping. KVNG KNEE - ARTHROSCOPIC && CARTILAGE REPAIR - Family History Known Family History: Positive: Hypertension - Social History Occupation: Retired Lives: With Family Alcohol Use: None Substance Use Type: None Smoking Status (MU): Former Smoker Amount Used/How Often: smoked for 10 years 1/2-1ppd Length of Time of Smoking/Using Tobacco: 1/2-1 PPD x 10 Years Have You Smoked in the Last Year: No When Did the Patient Quit Smoking/Using Tobacco: 1967 - Immunization History Most Recent Influenza Vaccination: not yet 2016 Review of Systems Constitutional: Negative Skin: Negative Eyes: Negative ENT: Epistaxis Respiratory: Negative Cardiovascular: Negative Gastrointestinal: Negative Genitourinary: Negative Motor: Negative Neurovascular: Negative Musculoskeletal: Negative Neurological: Negative Psychological: Negative Is Patient Immunocompromised?: No All Other Systems Reviewed And Are Negative: Yes Physical Exam Triage Information Reviewed: Yes Appearance: Well-Appearing Vital Signs: Initial Vital Signs Temp 97.7 F 11/10/17 11:18 Pulse 64 11/10/17 11:18 Resp 16 11/10/17 11:18 BP 114/57 11/10/17 11:18 Pulse Ox 97 11/10/17 11:18 Vital Signs Reviewed: Yes Eye Exam: Normal ENT: Positive: Other - large dried blood clot intact in right nostril Dental Exam: Normal Neck exam: Normal Respiratory Exam: Normal Cardiovascular: Positive: Murmur:Sys:Grade _?_/ Musculoskeletal Exam: Normal Neurological Exam: Normal Psychological Exam: Normal Skin Exam: Normal Epistaxis Nasal Course/Dx - Course Course Of Treatment: I discussed with the pt the need to follo wup with PCP and to leave clot intact unless symptoms worsen then to seek care immediately at closest emergency room. Pt verbalized understanding and agreed to plan of care. - Differential Dx/Diagnosis Differential Diagnosis/HQI/PQRI: Coagulopathy, Epistaxis Provider Diagnoses: epistaxis Discharge - Sign-Out/Discharge Documenting (check all that apply): Patient Departure All imaging exams completed and their final reports reviewed: No Studies - Discharge Plan Condition: Stable Disposition: HOME Patient Education Materials: Nosebleed (ED) Referrals: Austen Cortez MD [Medical Doctor] - As Soon As Possible Gonsalo Child MD [Primary Care Provider] - If Needed Monroe Toney MD [Medical Doctor] - As Soon As Possible Additional Instructions: Please follow up with your PCP as soon as possible. We have also provided a list of two ENT providers for you to choose from to follow up with regarding your complaint of nose bleed. - Billing Disposition and Condition Condition: STABLE Disposition: Home
== END 2017-11-10 12:02 | disposition home or self-care (01) ==
LOC: UCCORT 10:49
DX: R04.0 Epistaxis (principal); Z79.01 Long term (current) use of anticoagulants; Z88.1 Allergy status to other antibiotic agents; Z87.891 Personal history of nicotine dependence
CPT/HCPCS: 99212; G0463